=== PATIENT | male | born 1975 | race Caucasian/White ===

== ENCOUNTER 2017-01-13 11:35 | Day surgery (SDC) | payer MEDICAID ==
[2017-01-13 12:12] VITALS: TEMP 98
[2017-01-13] MEDS ORDERED: LACTATED RINGERS 1,000 ML IV ONE (12:12)
[2017-01-13] MEDS ORDERED: LIDOCAINE 1% 20 ML VIAL (10MG/ML) FOR IV START INTRADERMA ONE (12:19)
[2017-01-13] MEDS ORDERED: PROPOFOL 10 MG/ML 20 ML VIAL IV ONE (13:02)
--- NOTE | 2017-01-13 13:20 | P.PCN ---
Date of Procedure: 01/13/17 Procedure(s) Performed: BRIEF HISTORY: Patient is a 41-year-old pleasant white male, scheduled for an elective colonoscopy as a part of evaluation of intermittent rectal bleeding for the last several years duration. PROCEDURE PERFORMED: Colonoscopy with snare polypectomy. PREOPERATIVE DIAGNOSIS: Rectal bleeding. IV sedation per Anesthesia. PROCEDURE: After informed consent was obtained, the patient, was brought into the endoscopy unit. IV sedation was administered by Anesthesia under continuous monitoring. Digital rectal examination was normal. Initially the Olympus CF- 160 flexible video colonoscope was then inserted in the rectum, gradually advanced into the cecum without any difficulty. Careful examination was performed as the scope was gradually being withdrawn. Ileocecal valve and the appendiceal orifice were visualized and appeared normal. Prep was excellent. Mucosa of the cecum, ascending colon, transverse colon, descending colon, sigmoid colon, and rectum appeared normal. There was a 7-8 mm sigmoid colon polyp that was removed by snare polypectomy. Retroflexion was performed in the rectum and small internal hemorrhoids were seen. The patient tolerated the procedure well. IMPRESSION: 7-8 mm sigmoid colon polyp status post polypectomy Small internal hemorrhoids. RECOMMENDATIONS: Findings of this examination were discussed with the patient as well as his family. He was advised to be a high-fiber diet and take fiber supplements on a regular basis. If the biopsy of the colon polyps shows a tubal adenoma he can have a repeat colonoscopy in 5.
[2017-01-13 13:22] VITALS: RESP 16
[2017-01-13 13:39] VITALS: BP 118/83; PULSE 72
== END 2017-01-13 14:00 | disposition home or self-care (01) ==
LOC: ORWHC2ENDO 11:35
PROVIDERS: ATTEND Internal Medicine Gastroenterology
DX: D12.5 Benign neoplasm of sigmoid colon (principal); K64.8 Other hemorrhoids; Z79.899 Other long term (current) drug therapy; Z88.0 Allergy status to penicillin
CPT/HCPCS: 88305; 45385; J2704

== ENCOUNTER → 2017-01-24 | Outpatient (CLI) | payer MEDICAID ==
--- NOTE | 2017-01-24 19:43 | CONS ---
CONSULTATION REASON FOR CONSULTATION: Sleep apnea. 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 The patient is coming in accompanied by his due to concerns about sleep apnea. The patient has been exposed to sawdust and weeds and other tree pollen over the years, and he has chronic nasal congestion and drainage. He has had septal deviation that was corrected surgically by Dr. Goodwin. Currently he is constantly congested in his nose and is essentially a mouth breather. He has a loud snore. He quits breathing at night. He wakes up non-refreshed and tired during the day. He can fall asleep easily. His [place] score is 12. He has never fallen asleep while driving. No recent weight gain. He goes to bed around 11:30 p.m. and wakes up at 6:45 a.m. in the morning. No sleep paralysis or cataplexy. No hallucinations. He is on Zoloft. PAST MEDICAL HISTORY: 1. Nasal septal deviation, corrected. 2. Allergic rhinitis. SURGICAL HISTORY: Nasal septal deviation correction. ALLERGIES: NOT KNOWN. MEDICATIONS: Zoloft. SOCIAL HISTORY: The patient drinks caffeine excessively throughout the day, alcohol socially. No smoking. FAMILY HISTORY: Negative for sleep apnea. REVIEW OF SYSTEMS: Twelve-point review of system was done. Positive findings are all mentioned above in the history of present illness. PHYSICAL EXAMINATION: BP is 135/81, pulse 92, respirations 16, temperature 98.3, saturation 98% on room air. Neck size 16-1/4. BMI 32.9. Weight is 222. Height is 5 feet 9 inches. GENERAL APPEARANCE: Calm, comfortable. HEENT: Bilateral tonsillar enlargement. Mallampati class 3. No goiter or neck masses. Turbinates are enlarged. Septal deviation is corrected surgically. The septum is in the midline. LUNGS: Clear to auscultation. HEART: Sounds are regular rate and rhythm. Normal S1, S2. ABDOMEN: Soft, nontender. No organomegaly. EXTREMITIES: No edema. No cyanosis or clubbing. IMPRESSION: 1. Obstructive sleep apnea suspected, currently under investigation. 2. Chronic allergic rhinitis. 3. History of nasal septal deviation, surgically corrected. 4. Mouth breather. PLAN: 1. Proceed with a screening polysomnogram. 2. Encourage use of Flonase nose spray twice a day. 3. Use antihistamines. 4. Use protective masks to avoid exposure to sawdust and other tree products. 5. Will continue to follow and make further recommendations based on his progress. KEYLA / TYLER: [id number] /
== END ==
LOC: SLEEP 16:58
PROVIDERS: ATTEND Internal Medicine Critical Care Medicine
DX: G47.30 Sleep apnea, unspecified (principal); J30.9 Allergic rhinitis, unspecified; Z79.899 Other long term (current) drug therapy
CPT/HCPCS: 99211

== ENCOUNTER → 2017-05-01 | Outpatient (CLI) | payer MEDICAID ==
--- NOTE | 2017-05-01 13:55 | US ---
EXAMINATION TYPE: US scrotum with doppler. DATE OF EXAM: 05/01/2017 COMPARISON: NONE CLINICAL HISTORY: 41-year-old male R10.2 Pelvic and perineal pain. Bilateral pain that comes and goe s for a few weeks. No injury and no previous surgeries. Technique: Multiple sonographic images of the scrotum were obtained. Color Doppler spectral waveform analysis of the testicular arteries and veins. FINDINGS: TESTICLES: Right Testicle: 4.1 x 3.8 x 2.8 cm Left Testicle: 4.2 x 3.4 x 2.5 cm Normal sonographic echotexture of the kidneys without hyperemia. There is satisfactory arterial and v enous flow seen on both sides. EPIDIDYMIS HEAD: Right Epididymis: 1.4 x 1.1 x 0.8 cm Left Epididymis: 1.0 x 1.0 x 0.7 cm Doppler performed to assess for testicular vascularity; good bilateral color flow and waveforms are s een. There is no evidence of testicular torsion. Presence of hydroceles: Moderate right and small left. Presence of varicoceles: yes, bilateral, left greater than right. IMPRESSION: 1. No sonographic evidence for testicular torsion or epididymoorchitis. 2. Moderate right and small left hydroceles. 3. Bilateral varicoceles, left greater than right.
== END | disposition home or self-care (01) ==
LOC: RADUSWWP 10:17
PROVIDERS: ATTEND Family Medicine
DX: N43.3 Hydrocele, unspecified (principal); I86.1 Scrotal varices; R10.2 Pelvic and perineal pain
CPT/HCPCS: 76870; 93975

== ENCOUNTER → 2017-05-02 | Outpatient (CLI) | payer MEDICAID ==
--- NOTE | 2017-05-02 17:27 | PN ---
PROGRESS NOTE This patient is 41-year-old, and he is coming in to discuss the results of the sleep study. The patient has undergone a screening polysomnogram and he was found to have moderate to severe DAVID with an AHI of 17. His sleep however was significantly fragmented and he had frequent nocturnal arousals. At the same time he had significant abnormalities in sleep architecture where the patient had over representation of stage I and stage 2 sleep with diminished delta and REM sleep. He is still tired, fatigued and sleepy and he is interested in treatment. I am going to offer CPAP therapy on this patient. We discussed various other options available for treatment of obstructive sleep apnea. He seems to be interested in in DAVID treatment and he has opted for CPAP treatment. He is tired and fatigued and he is quite symptomatic and does not fall asleep while driving his car. BP is 131/78, pulse is 80, respirations 16, height is 5 feet 9 inches, weight is 224, BMI is 33.0. General appearance: Calm and comfortable. Head is atraumatic, normocephalic. Neck is supple. There is no JVD. No goiter. No neck masses. Lungs diminished breath sounds. Otherwise clear. Heart sounds regular rate and rhythm. Normal S1, S2. No S3, S4. No murmurs. Abdomen is soft, nontender. No organomegaly. Extremities was no edema, cyanosis or clubbing. NEUROLOGIC: Alert and oriented x3. There is no focal neurological deficits. Psychiatrically: He has got appropriate mood and affect. IMPRESSION: 1. Symptomatic obstructive sleep apnea AHI of 17. 2. Sleep fragmentation secondary to obstructive sleep apnea. 3. Abnormality of sleep architecture with over representation of stage I and stage 2 sleep. 4. Obesity. PLAN: 1. Encourage weight loss. 2. Proceed with CPAP titration. MMODL / IJN: [id number] /
== END | disposition home or self-care (01) ==
LOC: SLEEP 15:19
PROVIDERS: ATTEND Internal Medicine Critical Care Medicine
DX: G47.33 Obstructive sleep apnea (adult) (pediatric) (principal)

== ENCOUNTER → 2017-06-07 | Outpatient (CLI) | payer MEDICAID ==
[2017-06-07 18:15] LABS: Basophils % (A) 0 %; Eosinophils # (A) 0.3 k/uL (0-0.7); Eosinophils % (A) 5 %; HCT 45.8 % (39.0-53.0); HGB 15.1 gm/dL (13.0-17.5); Lymphocytes # (A) 1.5 k/uL (1.0-4.8); Lymphocytes % (A) 20 %; MCHC 32.9 g/dL (31.0-37.0); MCV 87.9 fL (80.0-100.0); Monocytes # (A) 0.5 k/uL (0-1.0); Monocytes % (A) 6 %; Neutrophils # (A) 5.1 k/uL (1.3-7.7); Neutrophils % (A) 67 %; Platelet Count 214 k/uL (150-450); RBC 5.21 m/uL (4.30-5.90); RDW 12.6 % (11.5-15.5); WBC 7.5 k/uL (3.8-10.6)
[2017-06-07 18:32] LABS: ALT 67 U/L (21-72); AST 33 U/L (17-59); Albumin 4.5 g/dL (3.5-5.0); Alkaline Phosphatase 70 U/L (38-126); Anion Gap 12 mmol/L; Blood Urea Nitrogen 11 mg/dL (9-20); Calcium 9.4 mg/dL (8.4-10.2); Carbon Dioxide 29 mmol/L (22-30); Chloride 102 mmol/L (98-107); Cholesterol 178 mg/dL (<200); Glucose 88 mg/dL (74-99); HDL Cholesterol 35 mg/dL (40-60); LDL Cholesterol,Calculated 110 mg/dL (0-99); Potassium 4.2 mmol/L (3.5-5.1); Sodium 143 mmol/L (137-145); Total Bilirubin 0.6 mg/dL (0.2-1.3); Total Protein 7.1 g/dL (6.3-8.2); Triglycerides 167 mg/dL (<150)
[2017-06-08 01:04] LABS: Iron Saturation 15.53 (15.00-50.00)
== END | disposition home or self-care (01) ==
LOC: MMGSC 12:01
PROVIDERS: ATTEND Family Medicine
DX: Z00.00 Encounter for general adult medical examination without abnormal findings (principal); G47.33 Obstructive sleep apnea (adult) (pediatric); R10.30 Lower abdominal pain, unspecified
CPT/HCPCS: 36415; 80053; 80061; 82728; 83540; 83550; 84443; 85025

== ENCOUNTER → 2017-07-13 | Day surgery (SDC) | payer MEDICAID ==
[2017-07-11 11:54] VITALS: BMI 32.5
[~2017-07-13] MED LIST: DEXAMETHASONE SOD PHOS (MDV) 100 MG/10 ML VIAL ONE; DEXAMETHASONE SOD PHOSPHATE 10 MG/ML 1 ML VIAL IV ONE; DEXAMETHASONE SOD PHOSPHATE 4 MG/ML 1 ML VIAL IV ONE; FAMOTIDINE 20 MG/2 ML VIAL IV ONE; HYDROcodone/APAP 5-325MG 1 EACH TAB PO ONE; HYDROmorphone 0.5 MG/0.5 ML SYRINGE IVP PRN; LIDOCAINE 1% 20 ML VIAL (10MG/ML) FOR IV START INTRADERMA PRN; LIDOCAINE 1% INJ 10MG/ML (20 ML MDV) ONE; LIDOCAINE 1%-EPI 1:100,000 20 ML VIAL SQ ONE; MELOXICAM 7.5 MG TAB PO ONE; MIDAZOLAM 2 MG/2 ML VIAL IV PRN; MIDAZOLAM 2 MG/2 ML VIAL ONE; MORPHINE SULFATE 2 MG/ML SYRINGE IV PRN; ONDANSETRON 4 MG/2 ML VIAL IVP ONE; OXYMETAZOLINE 0.05% NASL SPRAY 1 SPRAY BOTTLE NASAL ONE; PROPOFOL 10 MG/ML 20 ML VIAL IV ONE; Pre Op ABX Message 1 EACH MISC MISCELLANE ONE; SCOPOLAMINE 1.5MG/72HR PATCH TRANSDERM ONE; SUCCINYLCHOLINE CHLORIDE 100 MG/5 ML SYR IV ONE; fentaNYL (PF) 50 MCG/ML 2 ML AMP IV PRN; fentaNYL (PF) 50 MCG/ML 2 ML AMP ONE; hydrALAZINE HCL 20 MG/ML 1 ML VIAL IV ONE
[2017-07-13 10:33] VITALS: RESP 16
[2017-07-13] MEDS: LACTATED RINGERS 1,000 ML IV SCH ×2 (10:44→14:46)
--- NOTE | 2017-07-13 12:51 | P.OP ---
Date of Procedure: 07/13/17 Preoperative Diagnosis: Deviated nasal septum to the right with right vomerian thickening bilateral inferior nasal turbinate hypertrophy with obstruction Postoperative Diagnosis: Same Procedure(s) Performed: Septoplasty Bilateral outfracture compression and submucosal resection of the inferior turbinates Anesthesia: JOHNA Surgeon: Jamal Goodwin Estimated Blood Loss (ml): 5 Pathology: other (sinonasal) Condition: stable Disposition: PACU Indications for Procedure: This patient presents to the office with persistent and relative nasal obstruction with recurring epistaxis. He was found have a right-sided vomerian thickening with an ulcerative area over that area along with infrequent turbinate hypertrophy and obstruction. Surgical correction was recommended. All risks, benefits, and alternative therapies were discussed. Consent was obtained and all questions were answered. The patient has a CPAP machine which is also adding to his problems. Operative Findings: Right septal deviation with a vomerian thickening and large obstructive inferior turbinates bilaterally. Description of Procedure: This patient was taken to the operative room and placed in the supine position. A general inhalation anesthetic was administered to the patient by the department of anesthesia with a functioning IV line in place. The patient was monitored throughout the entire case by the department of anesthesia. The eyes were taped shut for protection. The patient was placed in a slight reverse Trendelenburg position. The patient had previously utilize Afrin nasal spray preoperatively. The nose was evaluated and the septum lateral nasal wall and inferior turbinates were injected with lidocaine 1% with epinephrine 1 100, 000 bilaterally. Approximately 10 minutes were allowed wait for full vasoconstrictive effects to take place. At this point a caudal incision was made over the caudal portion of the left septum down to the mucoperichondrium. A mucoperichondrial flap was elevated on the left side and dissection was carried with use of tunnels posteriorly. We then made a crossover incision through the cartilage to the contralateral side and for the mucoperichondrial flap development was performed to the extent of visualization on the contralateral side. After the cartilage was freed with use of several crosshatching incisions and removal of some redundant strips of septal cartilage, the septum was straightened and placed back in the midline. A large right ovarian thickening was removed under direct visualization. The septum was sutured fixated to the ovarian groove. Excellent straightening occurred and the septum was visibly straight. Incision was closed with a 40 rapid Vicryl. We utilized a running nonlocking fashion for closure of the incision. A quilting stitch was used to reapproximate the septal flaps with use of a 40 rapid Vicryl. Intranasal splints were inserted and fixated at the end of the case. We utilized Iyer nasal splints. There will be removed and the patient returns to the office. Attention was then paid to the inferior turbinates. The bilateral inferior turbinates were hypertrophic and obstructive. We entered the anterior portion of the inferior turbinates with use of a microdebrider. We remove bone and submucosal elements with use of a microdebrider bilaterally. The inferior turbinates underwent a submucosal resection with removal of submucosal tissue and bone. We obtained a much better and normal in size for breathing. The inferior turbinates were then outfractured and compressed with a BuzzSpicees nasal elevator. Excellent airway was obtained and was symmetric bilaterally. No bleeding was encountered.
[2017-07-13 14:53] VITALS: TEMP 97.7
[2017-07-13 15:22] VITALS: BP 162/81; PULSE 79
== END ==
LOC: OR 10:16
PROVIDERS: ATTEND Otolaryngology
DX: J34.2 Deviated nasal septum (principal); J34.0 Abscess, furuncle and carbuncle of nose; J34.3 Hypertrophy of nasal turbinates; G47.33 Obstructive sleep apnea (adult) (pediatric); Z99.89 Dependence on other enabling machines and devices; F32.9 Major depressive disorder, single episode, unspecified; Z79.2 Long term (current) use of antibiotics; Z79.51 Long term (current) use of inhaled steroids; Z79.899 Other long term (current) drug therapy; Z88.0 Allergy status to penicillin
CPT/HCPCS: 88300; 30520; 30140; J2250; J0360; J2405; J2001; J3010; J1100; J0330; J2704

== ENCOUNTER → 2017-07-25 | Outpatient (CLI) | payer MEDICAID ==
--- NOTE | 2017-07-25 19:16 | PN ---
PROGRESS NOTE This is a 41-year-old male patient who is coming in for a compliancy check regarding his obstructive sleep apnea treatment. The patient was found to have moderately severe DAVID with an AHI of 17, worse in the supine body position. The patient has been involved in the [employer] and [email or web address]. The patient underwent recent sinus surgery by Dr. Goodwin and he was unable to use the CPAP for a total of 2 weeks. On today's compliance data, his 30-day compliance data has been suboptimal, as the patient has skipped using his CPAP for quite some time due to his sinus surgery. Based on the average CPAP use, he has been achieving around 5.3 hours of CPAP use per night with a leak factor of 8, and AHI while on treatment is down to 3.4. He is benefitting from treatment while wearing his CPAP and he is waking up alert and refreshed during the day. He is on a CPAP pressure of 8 cm of water, now with a C-flex of 3. He is using a large Simplus full-face mask. He is looking for alternatives, knowing that he is having some leaks around the mask, and the mask at times is causing some hissing noise which is affecting his ability to maintain sleep. REVIEW OF SYSTEMS: Twelve-point review of system was done. Positive findings are all mentioned above in the history of present illness. He is waking up much more alert and awake during the day. Snoring has subsided. Tiredness is improved. No sleepiness. No dreams. No sleep paralysis. No hallucinations. No cataplexy. No nocturnal heartburn, chest pain or shortness of breath. No swelling in the lower extremities. No other complaints otherwise. PHYSICAL EXAMINATION: BP is 117/73, pulse 88, respirations 16, temperature 97.8. GENERAL APPEARANCE: He is calm and comfortable. No acute distress. Head is atraumatic, normocephalic. NECK: Supple. There is no JVD. No goiter or neck masses. LUNGS: Diminished breath sounds; otherwise clear. Heart sounds are regular rate and rhythm. Normal S1, S2. No S3, S4. No murmurs. ABDOMEN: Soft, nontender. No organomegaly. EXTREMITIES: No edema. No cyanosis or clubbing. NEUROLOGIC: Alert and oriented x3. There is no focal neurological deficit. PSYCHIATRIC: The patient has no anxiety or depression. IMPRESSION: 1. Symptomatic obstructive sleep apnea, moderate to severe, with an AHI of 17, worse in the supine body position. 2. Chronic sinus disease, post sinus surgery. 3. Chronic allergic rhinitis. 4. History of deviated nasal septum, corrected surgically. PLAN: 1. Will switch this patient to an Airtouch full-face mask, large size, and if he is more comfortable with this mask interface, he will be switched from Simplus to Airtouch or AirFit F20. He will contact me back with his overall clinical response. 2. Improve compliance to the CPAP machine. I think after the sinus surgery he will be able to utilize more often. 3. Patient is benefitting clinically and he is encouraged to continue using the CPAP. 4. See me back in a year's time, earlier if needed. Overall his treatment has been successful. Further compliancy needs to be observed as the patient recovers from his sinus surgery. KEYLA / MERCEDESN: [id number] /
== END | disposition home or self-care (01) ==
LOC: SLEEP 16:11
PROVIDERS: ATTEND Internal Medicine Critical Care Medicine
DX: G47.33 Obstructive sleep apnea (adult) (pediatric) (principal); J32.9 Chronic sinusitis, unspecified; J30.9 Allergic rhinitis, unspecified; Z98.890 Other specified postprocedural states; Z99.89 Dependence on other enabling machines and devices

== ENCOUNTER 2017-08-07 21:55 | Observation (INO) | payer MEDICAID ==
[2017-08-07] MEDS ORDERED: SODIUM CHLORIDE 0.9% 1,000 ML IV STA ×2 (22:36)
--- NOTE | 2017-08-07 23:26 | XR ---
EXAMINATION TYPE: XR chest 2V DATE OF EXAM: 08/07/2017 COMPARISON: NONE HISTORY: Chest pain TECHNIQUE: Frontal and lateral views of the chest are obtained. FINDINGS: Heart and mediastinum are normal. Lungs are clear. Diaphragm is normal. Bony thorax is int act. IMPRESSION: Normal chest
[2017-08-07 23:35] LABS: Basophils % (A) 0 %; Eosinophils # (A) 0.1 k/uL (0-0.7); Eosinophils % (A) 1 %; HCT 40.8 % (39.0-53.0); HGB 14.2 gm/dL (13.0-17.5); Lymphocytes # (A) 0.8 k/uL (1.0-4.8); Lymphocytes % (A) 19 %; MCH 28.5 pg (25.0-35.0); MCHC 34.9 g/dL (31.0-37.0); Mean Platelet Volume 7.2; Monocytes # (A) 0.5 k/uL (0-1.0); Monocytes % (A) 12 %; Neutrophils # (A) 3.1 k/uL (1.3-7.7); Neutrophils % (A) 68 %; Platelet Count 157 k/uL (150-450); RBC 4.99 m/uL (4.30-5.90); RDW 12.9 % (11.5-15.5); WBC 4.5 k/uL (3.8-10.6)
[2017-08-07 23:42] LABS: MCV 81.8 fL (80.0-100.0)
--- NOTE | 2017-08-07 23:43 | CT ---
EXAMINATION TYPE: CT brain wo con DATE OF EXAM: 08/07/2017 COMPARISON: NONE HISTORY: No prior, Head injury 2 days ago, fell backwards while roller skating, no LOC, feeling lousy since incident CT DLP: 1054.20 mGycm. Automated Exposure Control for Dose Reduction was Utilized. TECHNIQUE: CT scan of the head is performed without contrast. FINDINGS: Ventricles and sulci appear normal. There is no mass effect nor midline shift. There is n o sign of intracranial hemorrhage. The calvarium is intact. CONCLUSION: Normal CT scan of the brain.
[2017-08-07 23:46] LABS: ALT 50 U/L (21-72); AST 30 U/L (17-59); Albumin 3.8 g/dL (3.5-5.0); Alkaline Phosphatase 52 U/L (38-126); Amylase 64 U/L (30-110); Anion Gap 15 mmol/L; Blood Urea Nitrogen 13 mg/dL (9-20); Calcium 8.9 mg/dL (8.4-10.2); Carbon Dioxide 24 mmol/L (22-30); Chloride 101 mmol/L (98-107); Glucose 146 mg/dL (74-99); Lipase 233 U/L (23-300); Magnesium 1.9 mg/dL (1.6-2.3); Potassium 3.4 mmol/L (3.5-5.1); Sodium 140 mmol/L (137-145); Total Bilirubin 0.4 mg/dL (0.2-1.3)
[2017-08-07 23:54] LABS: Appearance,Urine Clear (Clear); Bilirubin,Urine Negative (Negative); Blood,Urine Negative (Negative); Color,Urine Yellow; Glucose,Urine (UA) Negative (Negative); Ketones,Urine Negative (Negative); Leukocyte Esterase,Urine Negative (Negative); Nitrite,Urine Negative (Negative); Protein,Urine Trace (Negative); Specific Gravity,Urine 1.023 (1.001-1.035)
[2017-08-07 23:56] LABS: Partial Thromboplastin Time 21.9 sec (22.0-30.0); Prothrombin Time 9.9 sec (9.0-12.0)
--- NOTE | 2017-08-07 23:59 | ED ---
General Adult HPI - General Chief complaint: Head Injury Stated complaint: concussion symptoms Time Seen by Provider: 08/07/17 22:13 Source: patient, RN notes reviewed, old records reviewed Mode of arrival: ambulatory Limitations: no limitations - History of Present Illness Initial comments: Patient's a 41-year-old male presents emergency Department chief complaint of a head injury that happened 2 days ago. Patient ports he was ice skating and hit the back of his head on the ice. He reports that he was seen at at a hospital in [place]. He did not receive a computed tomography scan. He had a laceration over the back of his head. He reports since then he has been just feeling abnormal. He reports that he's been having cold sweats. He's been having difficulty with his thought process. He reports that he's been having occasional shortness of breath as well. He states that he is felt nauseated and dizzy as well. Patient denies any significant chest pain at this time. - Related Data Home Medications Medication Instructions Recorded Confirmed Sertraline [Zoloft] 100 mg PO DAILY 04/14/15 07/13/17 Previous Rx's Medication Instructions Recorded Clindamycin HCl 300 mg PO Q12HR #20 cap 07/13/17 Hydrocodone/Acetaminophen [[place] 1 - 2 each PO Q6HR PRN #40 tab 07/13/17 5-325] predniSONE 20 mg PO DIRECTED #5 tab 07/13/17 Allergies Allergy/AdvReac Type Severity Reaction Status Date / Time Penicillins Allergy Unknown Verified 08/07/17 22:06 Childhood Review of Systems ROS Statement: Those systems with pertinent positive or pertinent negative responses have been documented in the HPI. ROS Other: All systems not noted in ROS Statement are negative. Past Medical History Past Medical History: No Reported History Additional Past Medical History / Comment(s): SINUS PROBLEMS History of Any Multi-Drug Resistant Organisms: None Reported Past Surgical History: Orthopedic Surgery Additional Past Surgical History / Comment(s): wisdom teeth removed. BILAT [facility] Past Anesthesia/Blood Transfusion Reactions: No Reported Reaction Past Psychological History: Anxiety Smoking Status: Never smoker Past Alcohol Use History: None Reported Past Drug Use History: None Reported - Past Family History Mother Family Medical History: No Reported History General Exam - General Exam Comments Initial Comments: 41-year-old male. Alert. No acute distress. Limitations: no limitations General appearance: alert, in no apparent distress, other Head exam: Present: atraumatic, normocephalic, normal inspection, other ( is a well-appearing laceration over the right side of the posterior scalp. No significant hematoma noted.) Eye exam: Present: normal appearance, PERRL, EOMI. Absent: scleral icterus, conjunctival injection, periorbital swelling ENT exam: Present: normal exam, mucous membranes moist Neck exam: Present: normal inspection. Absent: tenderness, meningismus, lymphadenopathy Respiratory exam: Present: normal lung sounds bilaterally. Absent: respiratory distress, wheezes, rales, rhonchi, stridor Cardiovascular Exam: Present: regular rate, normal rhythm, normal heart sounds. Absent: systolic murmur, diastolic murmur, rubs, gallop, clicks GI/Abdominal exam: Present: soft, normal bowel sounds. Absent: distended, tenderness, guarding, rebound, rigid Course Vital Signs 08/07/17 08/07/17 08/08/17 22:04 23:57 00:00 Temperature 97.5 F L Pulse Rate 80 63 95 Respiratory 18 18 19 Rate Blood Pressure 131/74 125/61 116/67 O2 Sat by Pulse 98 96 100 Oximetry 08/08/17 01:00 Temperature 97.8 F Pulse Rate 60 Respiratory 16 Rate Blood Pressure 120/64 O2 Sat by Pulse 100 Oximetry Medical Decision Making - Medical Decision Making 41-year-old male presents emergency department today chief complaint head injury a few days ago. He reports that since that time he was having some episodes of nausea, and cold sweats. He reports he just feeling generally ill. Patient is complaining EKG and the patient. There was some signs of inferior ischemia and the T-wave abnormality in leads II, III, and F aVF. Patient has no previous EKGs to compare from. He does have a family history of heart disease. I did scan patient's brain, negative for any acute process. Patient labwork was reviewed and the relatively unremarkable. At this time with the nausea and cold sweats and the abnormal EKG like to give the patient for observation. Repeat troponins. Consult cardiology for possible stress test. All questions answered return parameters were discussed. - Lab Data Result diagrams: 08/07/17 22:22 08/07/17 22:22 Lab Results 08/07/17 08/07/17 08/07/17 Range/Units 22:22 22:22 22:22 WBC 4.5 (3.8-10.6) k/uL RBC 4.99 (4.30-5.90) m/uL Hgb 14.2 (13.0-17.5) gm/dL Hct 40.8 (39.0-53.0) % MCV 81.8 D (80.0-100.0) fL MCH 28.5 (25.0-35.0) pg MCHC 34.9 (31.0-37.0) g/dL RDW 12.9 (11.5-15.5) % Plt Count 157 (150-450) k/uL Neutrophils % 68 % Lymphocytes % 19 % Monocytes % 12 % Eosinophils % 1 % Basophils % 0 % Neutrophils # 3.1 (1.3-7.7) k/uL Lymphocytes # 0.8 L (1.0-4.8) k/uL Monocytes # 0.5 (0-1.0) k/uL Eosinophils # 0.1 (0-0.7) k/uL Basophils # 0.0 (0-0.2) k/uL PT (9.0-12.0) sec INR (<1.2) APTT (22.0-30.0) sec Sodium 140 (137-145) mmol/L Potassium 3.4 L (3.5-5.1) mmol/L Chloride 101 (98-107) mmol/L Carbon Dioxide 24 (22-30) mmol/L Anion Gap 15 mmol/L BUN 13 (9-20) mg/dL Creatinine 0.80 (0.66-1.25) mg/dL Est GFR (CKD-EPI)AfAm >90 (>60 ml/min/1.73 sqM) Est GFR (CKD-EPI)NonAf >90 (>60 ml/min/1.73 sqM) Glucose 146 H (74-99) mg/dL Calcium 8.9 (8.4-10.2) mg/dL Magnesium 1.9 (1.6-2.3) mg/dL Total Bilirubin 0.4 (0.2-1.3) mg/dL AST 30 (17-59) U/L ALT 50 (21-72) U/L Alkaline Phosphatase 52 (38-126) U/L Total Creatine Kinase 58 (55-170) U/L CK-MB (CK-2) <0.2 (0.0-2.4) ng/mL CK-MB (CK-2) Rel Index Troponin I <0.012 (0.000-0.034) ng/mL Total Protein 6.0 L (6.3-8.2) g/dL Albumin 3.8 (3.5-5.0) g/dL Amylase 64 (30-110) U/L Lipase 233 (23-300) U/L Urine Color Urine Appearance (Clear) Urine pH (5.0-8.0) Ur Specific [place] (1.001-1.035) Urine Protein (Negative) Urine Glucose (UA) (Negative) Urine Ketones (Negative) Urine Blood (Negative) Urine Nitrite (Negative) Urine Bilirubin (Negative) Urine Urobilinogen (<2.0) mg/dL Ur Leukocyte Esterase (Negative) 08/07/17 08/07/17 Range/Units 22:22 23:36 WBC (3.8-10.6) k/uL RBC (4.30-5.90) m/uL Hgb (13.0-17.5) gm/dL Hct (39.0-53.0) % MCV (80.0-100.0) fL MCH (25.0-35.0) pg MCHC (31.0-37.0) g/dL RDW (11.5-15.5) % Plt Count (150-450) k/uL Neutrophils % % Lymphocytes % % Monocytes % % Eosinophils % % Basophils % % Neutrophils # (1.3-7.7) k/uL Lymphocytes # (1.0-4.8) k/uL Monocytes # (0-1.0) k/uL Eosinophils # (0-0.7) k/uL Basophils # (0-0.2) k/uL PT 9.9 (9.0-12.0) sec INR 1.0 (<1.2) APTT 21.9 L (22.0-30.0) sec Sodium (137-145) mmol/L Potassium (3.5-5.1) mmol/L Chloride (98-107) mmol/L Carbon Dioxide (22-30) mmol/L Anion Gap mmol/L BUN (9-20) mg/dL Creatinine (0.66-1.25) mg/dL Est GFR (CKD-EPI)AfAm (>60 ml/min/1.73 sqM) Est GFR (CKD-EPI)NonAf (>60 ml/min/1.73 sqM) Glucose (74-99) mg/dL Calcium (8.4-10.2) mg/dL Magnesium (1.6-2.3) mg/dL Total Bilirubin (0.2-1.3) mg/dL AST (17-59) U/L ALT (21-72) U/L Alkaline Phosphatase (38-126) U/L Total Creatine Kinase (55-170) U/L CK-MB (CK-2) (0.0-2.4) ng/mL CK-MB (CK-2) Rel Index Troponin I (0.000-0.034) ng/mL Total Protein (6.3-8.2) g/dL Albumin (3.5-5.0) g/dL Amylase (30-110) U/L Lipase (23-300) U/L Urine Color Yellow Urine Appearance Clear (Clear) Urine pH 6.0 (5.0-8.0) Ur Specific [place] 1.023 (1.001-1.035) Urine Protein Trace H (Negative) Urine Glucose (UA) Negative (Negative) Urine Ketones Negative (Negative) Urine Blood Negative (Negative) Urine Nitrite Negative (Negative) Urine Bilirubin Negative (Negative) Urine Urobilinogen 3.0 (<2.0) mg/dL Ur Leukocyte Esterase Negative (Negative) 08/07/17 23:58 EKG performed at 2249 shows normal sinus rhythm. T-wave abnormality. Considering inferior ischemia. Abnormal EKG noted. Ventricular rate of 65 beats. [place] interval is 176 most seconds. QRS ration 90 ms. QT QTc is 390/405 ms. - Radiology Data Radiology results: report reviewed Normal computed tomography scan of the brain. Chest x-rays reviewed and negative for any acute process. Disposition Clinical Impression: Abnormal EKG, Dizziness, Nausea, Head injury Disposition: ADMITTED IP TO THIS [facility] Condition: Stable Is patient prescribed a controlled substance at d/c from ED?: No If prescribed controlled substance>3 days was MAPS reviewed?: No When asked, does pt state using other controlled substances?: No Referrals: Carmencita England MD [Primary Care Provider] - 1-2 days Time of Disposition: 01:30
[2017-08-08 00:05] LABS: Creatine Kinase 58 U/L (55-170)
[2017-08-08 00:18] LABS: Creatine Kinase MB <0.2 ng/mL (0.0-2.4); Troponin I <0.012 ng/mL (0.000-0.034)
[2017-08-08 01:26] VITALS: RESP 16
[2017-08-08] MEDS ORDERED: NITROGLYCERIN SL TABS 0.4 MG TAB SUBLINGUAL PRN (01:30)
[2017-08-08 02:20] VITALS: BMI 33.3
[2017-08-08 04:58] LABS: Creatine Kinase 52 U/L (55-170)
[2017-08-08 05:11] LABS: Creatine Kinase MB <0.2 ng/mL (0.0-2.4); Troponin I <0.012 ng/mL (0.000-0.034)
[2017-08-08] MEDS ORDERED: NALOXONE 0.4 MG/ML 1 ML VIAL IV PRN (07:04)
--- NOTE | 2017-08-08 07:04 | P.HPIM ---
History of Present Illness H&P Date: 08/08/17 Chief Complaint: headache, nausea 41-year-old male with obstructive sleep apnea currently treated. Over the weekend 2 days ago he had the fall hitting the back of his head while ice skating he went to Hospital in [place] and had some stitches placed no imaging was performed. Since then patient was feeling nauseated, generalized malaise, and feels like his thoughts are loss for which she decided come the hospital for further evaluation. He also reports some night sweats. Patient denies any chest pain or history of heart attacks, he reports no history of premature CAD in family. He denies any smoking. Denies any recent traveling. Denies any history of blood clots. Scan of the head was performed in the ED was unremarkable Patient seen on the medical floor and currently denies any chest pain or trouble breathing Review of Systems Constitutional: Patient denies fever, denies chills, reports night sweating, denies significant weight changes Eyes: Patient denies visual changes, denies eye pain ENT: Patient denies ear pain, denies rhinorrhea, denies sore throat Cardiovascular: Patient denies chest pain, denies exertional dyspnea, denies peripheral leg edema, denies orthopnea, denies paroxysmal nocturnal dyspnea Respiratory:Patient denies cough, denies wheezing, denies shortness of breath Gastrointestinal: Patient denies diarrhea, denies constipation, denies nausea , denies vomiting, denies abdominal pain Genitourinary: Patient denies dysuria, denies hematuria, denies changes in urinary habits, denies genital lesions Musculoskeletal: Patient denies muscle pain, denies joint pain Psychiatric: Patient denies reports difficulty with his thoughts and memory since the fall, denies suicidal ideation, denies anxiety Endocrine: Patient denies heat intolerance, denies cold intolerance, denies excessive thirst, denies polyuria Neurological: Patient denies focal neurologic deficits, denies weakness, denies numbness, denies tingling Hem/Lymphatic: Patient denies bleeding tendency, denies bruising, denies swollen lymph glands Allergic/Immun: Patient denies recent allergic reactions Skin: Patient denies rashes, denies pruritis, denies ulcers Past Medical History Past Medical History: No Reported History, Sleep Apnea/CPAP/BIPAP Additional Past Medical History / Comment(s): SINUS PROBLEMS, obstructive sleep apnea History of Any Multi-Drug Resistant Organisms: None Reported Past Surgical History: Orthopedic Surgery Additional Past Surgical History / Comment(s): wisdom teeth removed. BILAT carpel tunnel. Sinus surgery Past Anesthesia/Blood Transfusion Reactions: No Reported Reaction Past Psychological History: Anxiety Smoking Status: Never smoker Past Alcohol Use History: None Reported Past Drug Use History: None Reported - Past Family History Father Family Medical History: Cancer Additional Family Medical History / Comment(s): prostate Ca-surgery Mother Family Medical History: No Reported History Medications and Allergies Home Medications and Allergies Comment(s): Zoloft for anxiety Home Medications Medication Instructions Recorded Confirmed Type Sertraline [Zoloft] 100 mg PO DAILY 04/14/15 08/08/17 History Allergies Allergy/AdvReac Type Severity Reaction Status Date / Time Penicillins Allergy Unknown Verified 08/07/17 22:06 Childhood Physical Exam Vitals: Vital Signs Temp Pulse Pulse Resp BP BP Pulse Ox 08/08/17 04:00 56 L 16 08/08/17 02:30 62 16 08/08/17 01:40 98 F 62 16 123/72 99 08/08/17 01:00 97.8 F 60 16 120/64 100 08/08/17 00:00 95 19 116/67 100 08/07/17 23:57 63 18 125/61 96 08/07/17 22:04 97.5 F L 80 18 131/74 98 Intake and Output 08/07/17 08/07/17 08/08/17 14:59 22:59 06:59 Intake Total 500 Balance 500 Intake: Intake, IV Titration 500 Amount Sodium Chloride 0.9% 1, 500 000 ml @ 100 mls/hr IV . Q10H STA Rx#:[id number] Oral 0 Other: Voiding Method Toilet # Voids 2 Weight 99.79 kg 102.5 kg Constitutional: No acute distress, conversant, pleasant Eyes: Anicteric sclerae, moist conjunctiva, no lid-lag Pupils equal round reactive to light ENMT: NC/AT Oropharynx clear, no erythema, or exudates Neck: Supple, FROM, no masses, or JVD No carotid bruits No thyromegaly Lungs: Clear to auscultation Clear to percussion Normal respiratory effort, no accessory muscle use Cardiovascular: Heart regular in rate and rhythm, No murmurs, gallops, or rubs No peripheral edema Abdominal: Soft Nontender, no guarding, rebound or rigidity Abdomen moving with respiration Normoactive bowel sounds No hepatomegaly, No splenomegaly No palpable mass No abdominal wall hernia noted Skin: abrasion over the tucker of left leg, minimal surrounding erythema no induration Normal temperature, tone, texture, turgor No induration No subcutaneous nodules No rash, No ulcers Extremities: No digital cyanosis No clubbing Pedal pulses intact and symmetrical Radial pulses intact and symmetrical No calf tenderness Psychiatric: Alert and oriented to person, place and time Appropriate affect fair judgment Neuro Muscles Strength 5/5 in all 4 extremities Sensation to light touch grossly present throughout Cranial nerves II-XII grossly intact No focal sensory deficits Lymphatics: no palpable cervical or supraclavicular , or inguinal lymph nodes Results CBC & Chem 7: 08/07/17 22:22 08/07/17 22:22 Labs: Abnormal Lab Results - Last 24 Hours (Table) 08/07/17 08/07/17 08/07/17 Range/Units 22:22 22:22 22:22 Lymphocytes # 0.8 L (1.0-4.8) k/uL APTT 21.9 L (22.0-30.0) sec Potassium 3.4 L (3.5-5.1) mmol/L Glucose 146 H (74-99) mg/dL Total Creatine Kinase (55-170) U/L Total Protein 6.0 L (6.3-8.2) g/dL Urine Protein (Negative) 08/07/17 08/08/17 Range/Units 23:36 04:16 Lymphocytes # (1.0-4.8) k/uL APTT (22.0-30.0) sec Potassium (3.5-5.1) mmol/L Glucose (74-99) mg/dL Total Creatine Kinase 52 L (55-170) U/L Total Protein (6.3-8.2) g/dL Urine Protein Trace H (Negative) Thrombosis Risk Factor Assmnt - Choose All That Apply Each Factor Represents 1 point: Age 41-60 years Thrombosis Risk Factor Assessment Total Risk Factor Score: 1 Thrombosis Risk Factor Assessment Level: Low Risk Assessment and Plan Assessment: 41-year-old male with history of obstructive sleep apnea and OCD. Recently fell on the back of his head requiring couple stitches. Computed tomography scan of the head is negative. EKG showed some abnormal T waves nonspecific for which she was admitted under observation for cardiology evaluation Plan: #Abnormal EKG T wave inversion in inferior leads Denies chest pain or trouble breathing at this time Cycling cardiac enzymes follow-up troponins Cardiology evaluation for further recommendations Continue with aspirin Nitro when necessary chest pain #Hypokalemia Replace by mouth #Obstructive sleep apnea Continue with CPAP #OCD Continue Zoloft DVT prophylaxis Heparin subcu. CODE STATUS:full code Discussed with: Patient, ER, RN Anticipated discharge: <[address]: A total of 50 minutes was spent on the care of this complex patient more than 50 % of the time was spent in counseling and care coordination.
[2017-08-08] MEDS ORDERED: POTASSIUM CHLORIDE ER 20 MEQ TAB.ER PO STA (07:06)
[2017-08-08 07:22] VITALS: BP 112/65; PULSE 65; TEMP 98.1
[2017-08-08] MEDS ORDERED: HEPARIN SODIUM,PORCINE 5,000 UNIT/ML 1 ML VIAL SQ SCH (08:00)
[2017-08-08] MEDS ORDERED: ACETAMINOPHEN TAB 325 MG TAB PO PRN (09:00)
[2017-08-08] MEDS ORDERED: traMADol 50 MG TAB PO PRN (09:00)
[2017-08-08] MEDS ORDERED: SERTRALINE 100 MG TAB PO SCH (09:00)
--- NOTE | 2017-08-08 10:36 | ECHOF ---
Referral Reason: MEASUREMENTS -------- HEIGHT: 170.2 cm WEIGHT: 90.7 kg BP: RVIDd: 3.2 cm (< 3.3) IVSd: 1.6 cm (0.6 - 1.1) LVIDd: 4.1 cm (3.9 - 5.3) LVPWd: 1.6 cm (0.6 - 1.1) IVSs: 2.3 cm LVIDs: 2.3 cm LVPWs: 2.0 cm Ao Diam: 3.4 cm (2.0 - 3.7) AV Cusp: 2.4 cm (1.5 - 2.6) LA Diam: 3.2 cm (2.7 - 3.8) MV EXCURSION: 22.560 mm (> 18.000) MV EF SLOPE: 274 mm/s (70 - 150) EPSS: 0.2 cm MV E Vj: 0.91 m/s MV DecT: 146 ms MV A Vj: 0.50 m/s MV E/A Ratio: 1.83 RAP: 5.00 mmHg RVSP: 36.57 mmHg FINDINGS -------- Sinus rhythm. This was a technically good study. The left ventricular size is normal. There is moderate concentric left ventricular hypertrophy. O verall left ventricular systolic function is normal with, an EF between 55 - 60 %. The right ventricle is normal in size and function. The left atrium is normal in size. The right atrium is normal in size. The aortic valve is trileaflet and appears structurally normal. The mitral valve leaflets are mildly thickened. There is trace mitral regurgitation. Trace tricuspid regurgitation present. The right ventricular systolic pressure, as measured by Dopp ler, is 36.57mmHg. Pulmonic valve appears structurally normal. The aortic root size is normal. Normal inferior vena cava with normal inspiratory collapse consistent with estimated right atrial pre ssure of 5 mmHg. The pericardium is normal. CONCLUSIONS -------- 1. Sinus rhythm. 2. This was a technically good study. 3. The left ventricular size is normal. 4. There is moderate concentric left ventricular hypertrophy. 5. Overall left ventricular systolic function is normal with, an EF between 55 - 60 %. 6. The right ventricle is normal in size and function. 7. The left atrium is normal in size. 8. The right atrium is normal in size. 9. The aortic valve is trileaflet and appears structurally normal. 10. The mitral valve leaflets are mildly thickened. 11. There is trace mitral regurgitation. 12. Trace tricuspid regurgitation present. 13. The right ventricular systolic pressure, as measured by Doppler, is 36.57mmHg. 14. Pulmonic valve appears structurally normal. 15. The aortic root size is normal. 16. Normal inferior vena cava with normal inspiratory collapse consistent with estimated right atrial pressure of 5 mmHg. 17. The pericardium is normal. CHIEF CLERK: Melissa Shrestha RDCS
--- NOTE | 2017-08-08 10:59 | P.CRDCN ---
History of Present Illness Consult date: 08/08/17 History of present illness: Mr. Valentine is a pleasant 41-year-old female past medical history significant for obstructive sleep apnea and anxiety. He denies history of coronary artery disease and has never seen a pharmacists for any reason. We have been asked to see him in consultation for an abnormal EKG. He presented to the hospital with complaints related to a fall on Monday. He was ice skating on Monday night and he slipped and fell backwards hitting his head on the ice. He suffered a laceration to the back of his head. He sought medical care at that time and was released after having a negative CT of his head. Since then he has described feeling that his thoughts are slow and he is dizzy. An EKG was obtained and revealed non-specific ST changes with no clear ST elevation indicative of ischemia. CT of his brain was again negative. EKG reveals sinus mechanism with non-specific ST abnormalities with T-wave inversion in inferior leads. There is no old for comparison. Chest xray negative for an acute cardiopulmonary process. CT brain negative. Laboratory data reviewed, hemoglobin 14.2, platelets 157, sodium 140, potassium 3.4, creatinine 0.8, magnesium 1.9, cardiac enzymes negative 2 Review of Systems At the time of my exam: CONSTITUTIONAL: Denies fever. Denies chills. EYES: Denies blurred vision. Denies vision changes. Denies eye pain. EARS, NOSE, MOUTH & THROAT: Denies headache. Denies sore throat. Denies ear pain. CARDIOVASCULAR: Denies chest pain. Denies shortness of breath. Denies orthopnea. Denies PND. Denies palpitations. RESPIRATORY: Denies cough. GASTROINTESTINAL: Denies abdominal pain. Denies diarrhea. Denies constipation. Denies nausea. Denies vomiting. MUSCULOSKELETAL: Denies myalgias. INTEGUMENTARY: Denies pruitis. Denies rash. NEUROLOGIC: Denies numbness. Denies tingling. Denies weakness. PSYCHIATRIC: Denies anxiety. Denies depression. ENDOCRINE: Denies fatigue. Denies weight change. Denies polydipsia. Denies polyurina. GENITOURINARY: Denies burning, hematuria or urgency with micturation. HEMATOLOGIC: Denies history of anemia. Denies bleeding. Past Medical History Past Medical History: No Reported History, Sleep Apnea/CPAP/BIPAP Additional Past Medical History / Comment(s): SINUS PROBLEMS, obstructive sleep apnea History of Any Multi-Drug Resistant Organisms: None Reported Past Surgical History: Orthopedic Surgery Additional Past Surgical History / Comment(s): wisdom teeth removed. BILAT carpel tunnel. Sinus surgery Past Anesthesia/Blood Transfusion Reactions: No Reported Reaction Past Psychological History: Anxiety Smoking Status: Never smoker Past Alcohol Use History: None Reported Past Drug Use History: None Reported - Past Family History Father Family Medical History: Cancer Additional Family Medical History / Comment(s): prostate Ca-surgery Mother Family Medical History: No Reported History Medications and Allergies Home Medications Medication Instructions Recorded Confirmed Type Sertraline [Zoloft] 100 mg PO DAILY 04/14/15 08/08/17 History Allergies Allergy/AdvReac Type Severity Reaction Status Date / Time Penicillins Allergy Unknown Verified 08/08/17 08:17 Childhood Physical Exam Vitals: Vital Signs Temp Pulse Pulse Resp BP BP Pulse Ox 08/08/17 07:21 98.1 F 65 16 112/65 97 08/08/17 04:00 56 L 16 08/08/17 02:30 62 16 08/08/17 01:40 98 F 62 16 123/72 99 08/08/17 01:00 97.8 F 60 16 120/64 100 08/08/17 00:00 95 19 116/67 100 08/07/17 23:57 63 18 125/61 96 08/07/17 22:04 97.5 F L 80 18 131/74 98 Intake and Output 08/07/17 08/08/17 08/08/17 22:59 06:59 14:59 Intake Total 500 Balance 500 Intake: Intake, IV Titration 500 Amount Sodium Chloride 0.9% 1, 500 000 ml @ 100 mls/hr IV . Q10H STA Rx#:[id number] Oral 0 Other: Voiding Method Toilet # Voids 2 Weight 99.79 kg 102.5 kg Blood pressure 112/65 heart rate 65 afebrile maintaining oxygen saturation on room air GENERAL: This is a 41-year-old occasion male in no apparent distress at the time of my examination. HEENT: Head is atraumatic, normocephalic. Pupils are equal, round. Sclerae anicteric. Conjunctivae are clear. Mucous membranes of the mouth are moist. Neck is supple. There is no jugular venous distention. No carotid bruit is heard. Small healed laceration on the right posterior head. LUNGS: Clear to auscultation no wheezes, rales or rhonchi. No chest wall tenderness is noted on palpation or with deep breathing. HEART: Regular rate and rhythm without murmurs, rubs or gallops. S1 and S2 heard. ABDOMEN: Soft, nontender. Bowel sounds are heard. No organomegaly noted. EXTREMITIES: No evidence of peripheral edema and no calf tenderness noted. VASCULAR: Radial and dorsalis pedis pulses palpated, no evidence of clubbing. NEUROLOGIC: Patient is awake, alert and oriented x3. Results 08/07/17 22:22 08/07/17 22:22 Cardiac Enzymes 08/07/17 08/07/17 08/08/17 Range/Units 22:22 22:22 04:16 AST 30 (17-59) U/L CK-MB (CK-2) <0.2 <0.2 (0.0-2.4) ng/mL Troponin I <0.012 <0.012 (0.000-0.034) ng/mL Coagulation 08/07/17 Range/Units 22:22 PT 9.9 (9.0-12.0) sec APTT 21.9 L (22.0-30.0) sec CBC 08/07/17 Range/Units 22:22 WBC 4.5 (3.8-10.6) k/uL RBC 4.99 (4.30-5.90) m/uL Hgb 14.2 (13.0-17.5) gm/dL Hct 40.8 (39.0-53.0) % Plt Count 157 (150-450) k/uL Comprehensive Metabolic Panel 08/07/17 Range/Units 22:22 Sodium 140 (137-145) mmol/L Potassium 3.4 L (3.5-5.1) mmol/L Chloride 101 (98-107) mmol/L Carbon Dioxide 24 (22-30) mmol/L BUN 13 (9-20) mg/dL Creatinine 0.80 (0.66-1.25) mg/dL Glucose 146 H (74-99) mg/dL Calcium 8.9 (8.4-10.2) mg/dL AST 30 (17-59) U/L ALT 50 (21-72) U/L Alkaline Phosphatase 52 (38-126) U/L Total Protein 6.0 L (6.3-8.2) g/dL Albumin 3.8 (3.5-5.0) g/dL Current Medications Generic Name Dose Route Start Last Admin Trade Name Freq PRN Reason Stop Dose Admin Aspirin 325 mg 08/09/17 09:00 Aspirin PO DAILY RYAN Heparin Sodium (Porcine) 5,000 unit 08/08/17 08:00 Heparin SQ Q8HR RYAN Sodium Chloride 1,000 mls @ 100 mls/hr 08/07/17 22:36 08/07/17 23:36 Saline 0.9% IV 08/08/17 08:35 100 mls/hr .Q10H STA Administration Naloxone HCl 0.2 mg 08/08/17 07:04 Narcan IV Q2M PRN Opioid Reversal Nitroglycerin 0.4 mg 08/08/17 01:30 Nitrostat SUBLINGUAL Q5M PRN Chest Pain Sertraline HCl 100 mg 08/08/17 09:00 Zoloft PO DAILY RYAN Intake and Output 08/07/17 08/08/17 08/08/17 22:59 06:59 14:59 Intake Total 500 Balance 500 Intake: Intake, IV Titration 500 Amount Sodium Chloride 0.9% 1, 500 000 ml @ 100 mls/hr IV . Q10H STA Rx#:[id number] Oral 0 Other: Voiding Method Toilet # Voids 2 Weight 99.79 kg 102.5 kg 08/07/17 22:22 08/07/17 22:22 Assessment and Plan Assessment: ASSESSMENT 1. EKG changes, nonspecific ST and T-wave abnormality. No acute ischemia evident. Cardiac enzymes are negative 2. 2. Dizziness s/p fall on ice while playing hockey 3 days ago. 3. Obstructive sleep apnea 4. History of anxiety PLAN Echocardiogram obtained and reviewed, preserved LV function with no valvular heart disease. Dizziness related to recent fall with negative CT of the brain. Ongoing medical management of dizziness with no clear cut evidence of cardiac etiology. Stable from a cardiac perspective. Follow-up with Dr. Pichardo in 2-3 weeks for outpatient stress testing. Thank you kindly for this consultation. The above impression and plan of care have been discussed and directed by the signing physician. Meera Burleson, nurse practitioner, acting as scribe for signing physician.
--- NOTE | 2017-08-08 11:14 | P.DS ---
Providers Date of admission: 08/08/17 01:24 Expected date of discharge: 08/08/17 Attending physician: Chet Lackey MD Consults: 08/08/17 01:31 Consult Physician Urgent Consulting Provider: Asher Morgan Consult Reason/Comments: Abnormal EKG, UA Do you want consulting provider notified?: Yes, Notify in am Primary care physician: Carmencita England - Discharge Diagnosis(es) (1) Concussion Current Visit: Yes Status: Acute (2) DAVID (obstructive sleep apnea) Current Visit: Yes Status: Acute (3) Abnormal EKG Current Visit: Yes Status: Acute (4) Dizziness Current Visit: Yes Status: Acute Hospital Course: Patient is a 41-year-old male with a past medical history of obstructive sleep apnea, obsessive-compulsive disorder, and obesity who presented to the hospital with complaints of dizziness and a headache. He had fell 3 days prior while ice skating the back of his head. He did have stitches placed. In the ER he underwent an extensive evaluation. On arrival his vital signs within normal limits. Laboratory analysis was unremarkable. EKG did show some T-wave inversion. His potassium was slightly low at 3.4. He was admitted for cardiac observation. His troponin remained negative. He was seen by cardiology who felt his dizziness was noncardiac in nature but recommended a outpatient stress test. He continued to have a headache during hospitalization however he did undergo a CT brain in the ER which was negative as well as a chest x-ray which was negative. It was felt that he likely has mild concussion related to his symptoms. We did talk about returning to work. 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 We did discuss that he can resume normal activities but needs to assure that he does not have a second head injury until all symptoms have resolved. I have also asked him to follow up with Dr. Yen Lucio in 1 week to ensure symptoms are getting better. Information on concussion symptoms was also included in his discharge packet. He will also follow with Dr. Pichardo for outpatient stress test. Patient seen and examined at bedside. ROSA improved with tylenol, dizziness getting better, still with fatigue. No visual changes, seizures, or changes in mood or behaviors. Vital signs reviewed and stable. General: non toxic, no distress, appears at stated age Derm: warm, dry Head: atraumatic, normocephalic, symmetric, small laceration on back of scalp no swelling or ecchymosis Eyes: EOMI, no lid lag, anicteric sclera Mouth: no lip lesion, mucus membranes moist Cardiovascular: S1S2 reg, no murmur, positive posterior tibial pulse bilateral, Lungs: CTA bilateral, no rhonchi, no rales , no accessory muscle use Abdominal: soft, nontender to palpation, no guarding, no appreciable organomegaly Ext: no gross muscle atrophy, no edema, no contractures Neuro: CN II-XI grossly intact, no focal neuro deficits Psych: Alert, oriented, appropriate affect A total of 30 minutes of time were spent preparing this complex discharge summary . Pertinent Studies: CT had-no acute process Chest x-ray-no acute process Patient Condition at Discharge: Stable Plan - Discharge Summary Discharge Rx Participant: No New Discharge Prescriptions: Continue Sertraline [Zoloft] 100 mg PO DAILY Discharge Medication List Sertraline [Zoloft] 100 mg PO DAILY 04/14/15 [History] Follow up Appointment(s)/Referral(s): Carmencita England MD [Primary Care Provider] - 1-2 days Niko Pichardo MD [STAFF PHYSICIAN] - 4 Weeks Patient Instructions/Handouts: Concussion (DC)
[2017-08-09] MEDS ORDERED: ASPIRIN 325 MG TAB PO SCH (09:00)
== END 2017-08-08 11:27 | disposition home or self-care (01) ==
LOC: EC 21:55 → 3OBS 08-08 01:24
PROVIDERS: ADMIT Internal Medicine; ATTEND Internal Medicine
DX: S06.0X9A Concussion with loss of consciousness of unspecified duration, initial encounter (principal); R61 Generalized hyperhidrosis; R06.02 Shortness of breath; E87.6 Hypokalemia; R94.31 Abnormal electrocardiogram [ECG] [EKG]; F42.9 Obsessive-compulsive disorder, unspecified; F41.9 Anxiety disorder, unspecified; G47.33 Obstructive sleep apnea (adult) (pediatric); Z99.89 Dependence on other enabling machines and devices; E66.9 Obesity, unspecified; Z68.33 Body mass index [BMI] 33.0-33.9, adult; S01.01XA Laceration without foreign body of scalp, initial encounter; Y93.21 Activity, ice skating; W01.0XXA Fall on same level from slipping, tripping and stumbling without subsequent striking against object, initial encounter; Z79.899 Other long term (current) drug therapy; Z88.0 Allergy status to penicillin; Z82.49 Family history of ischemic heart disease and other diseases of the circulatory system; Z80.42 Family history of malignant neoplasm of prostate
CPT/HCPCS: 99285; 96360 ×2; 96361 ×4; 96372; 36415; 93005; 93306; 80053; 82150; 82550 ×2; 82553 ×2; 83690; 83735; 84484 ×2; 85025; 85610; 85730; 81003; 71046; 70450; G0378; J1644

== ENCOUNTER 2018-10-01 08:28 | Observation (INO) | payer MEDICAID ==
[2018-10-01] MEDS ORDERED: ONDANSETRON 4 MG/2 ML VIAL IVP STA (08:55)
[2018-10-01] MEDS ORDERED: PANTOPRAZOLE 40 MG/10 ML VIAL IVP STA (08:55)
[2018-10-01] MEDS ORDERED: KETOROLAC 30 MG/ML 1 ML VIAL IVP STA (08:55)
[2018-10-01] MEDS ORDERED: MORPHINE SULFATE 4 MG/ML SYRINGE IV STA (08:55)
[2018-10-01] MEDS ORDERED: SODIUM CHLORIDE 0.9% 1,000 ML IV STA (08:55)
--- NOTE | 2018-10-01 09:00 | ED ---
Abdominal Pain HPI - General Chief Complaint: Abdominal Pain Stated Complaint: abd pain Time Seen by Provider: 10/01/18 08:47 Source: patient, RN notes reviewed, old records reviewed Mode of arrival: ambulatory Limitations: no limitations - History of Present Illness Initial Comments: Patient is a 42-year-old male presents emergency department today with complaints of diffuse abdominal pain, bloating sensation. He reports that multiple episodes of vomiting. He states that he's tried to have a bowel movement Was unsuccessful. Patient states that he feels better after he vomits. Patient states that he has more pain over the right lower quadrant. Patient denies any associated chills or fever. Denies any history of sick contacts. There've also been sick after eating the same food that he did yesterday. Patient reports symptoms started yesterday evening. - Related Data Home Medications Medication Instructions Recorded Confirmed Sertraline [Zoloft] 100 mg PO DAILY 04/14/15 10/01/18 Allergies Allergy/AdvReac Type Severity Reaction Status Date / Time Penicillins Allergy Unknown Verified 10/01/18 08:46 Childhood Review of Systems ROS Statement: Those systems with pertinent positive or pertinent negative responses have been documented in the HPI. ROS Other: All systems not noted in ROS Statement are negative. Past Medical History Past Medical History: No Reported History, Sleep Apnea/CPAP/BIPAP Additional Past Medical History / Comment(s): SINUS PROBLEMS, obstructive sleep apnea History of Any Multi-Drug Resistant Organisms: None Reported Past Surgical History: Orthopedic Surgery Additional Past Surgical History / Comment(s): wisdom teeth removed. BILAT carpel tunnel. Sinus surgery Past Anesthesia/Blood Transfusion Reactions: No Reported Reaction Past Psychological History: Anxiety Smoking Status: Never smoker Past Alcohol Use History: None Reported Past Drug Use History: None Reported - Past Family History Father Family Medical History: Cancer Additional Family Medical History / Comment(s): prostate Ca-surgery Mother Family Medical History: No Reported History General Exam - General Exam Comments Initial Comments: 42-year-old male. Alert and oriented 3. No distress. Limitations: no limitations General appearance: alert, in no apparent distress Head exam: Present: atraumatic, normocephalic, normal inspection Eye exam: Present: normal appearance, PERRL, EOMI. Absent: scleral icterus, conjunctival injection, periorbital swelling ENT exam: Present: normal exam, mucous membranes moist Neck exam: Present: normal inspection. Absent: tenderness, meningismus, lymphadenopathy Respiratory exam: Present: normal lung sounds bilaterally. Absent: respiratory distress, wheezes, rales, rhonchi, stridor Cardiovascular Exam: Present: regular rate, normal rhythm, normal heart sounds. Absent: systolic murmur, diastolic murmur, rubs, gallop, clicks GI/Abdominal exam: Present: soft, tenderness ( Right lower quadrant tenderness), normal bowel sounds. Absent: distended, guarding, rebound, rigid Extremities exam: Present: normal inspection, full ROM, normal capillary refill. Absent: tenderness, pedal edema, joint swelling, calf tenderness Back exam: Present: normal inspection Neurological exam: Present: alert, oriented X3, CN II-XII intact Psychiatric exam: Present: normal affect, normal mood Course Vital Signs 10/01/18 08:37 Temperature 97.7 F Pulse Rate 69 Respiratory 18 Rate Blood Pressure 144/76 O2 Sat by Pulse 97 Oximetry Medical Decision Making - Medical Decision Making 42-year-old male present emergency with nausea, vomiting, and abdominal fullness. He states that he felt better after he would vomit. Patient was given IV fluids and lab work was obtained. Patient does have some significant right lower quadrant tenderness. No fever at this time. Patient's laboratory was reviewed. White blood count elevated at 15,000 with left shift of 14,000. Kidney alert [place] test were normal. Patient CT abdomen and pelvis was completed. This was concerning for possible appendicitis with a large appendix noted symptoms surrounding inflammatory changes. Patient's case discussed with Dr. Durant. An issue Patient Rocephin and Flagyl due to penicillin ALLERGY. Patient's case discussed with Dr. Wilkinson who accepts admission. - Lab Data Result diagrams: 10/01/18 09:38 10/01/18 09:38 Lab Results 10/01/18 10/01/18 10/01/18 Range/Units 09:38 09:38 09:38 WBC 15.4 H (3.8-10.6) k/uL RBC 5.40 (4.30-5.90) m/uL Hgb 15.3 (13.0-17.5) gm/dL Hct 44.7 (39.0-53.0) % MCV 82.8 (80.0-100.0) fL MCH 28.3 (25.0-35.0) pg MCHC 34.2 (31.0-37.0) g/dL RDW 13.0 (11.5-15.5) % Plt Count 216 (150-450) k/uL Neutrophils % 91 % Lymphocytes % 5 % Monocytes % 3 % Eosinophils % 0 % Basophils % 0 % Neutrophils # 14.0 H (1.3-7.7) k/uL Lymphocytes # 0.8 L (1.0-4.8) k/uL Monocytes # 0.5 (0-1.0) k/uL Eosinophils # 0.1 (0-0.7) k/uL Basophils # 0.0 (0-0.2) k/uL PT 9.6 (9.0-12.0) sec INR 0.9 (<1.2) APTT 22.0 (22.0-30.0) sec Sodium 140 (137-145) mmol/L Potassium 4.1 (3.5-5.1) mmol/L Chloride 102 (98-107) mmol/L Carbon Dioxide 26 (22-30) mmol/L Anion Gap 12 mmol/L BUN 12 (9-20) mg/dL Creatinine 0.71 (0.66-1.25) mg/dL Est GFR (CKD-EPI)AfAm >90 (>60 ml/min/1.73 sqM) Est GFR (CKD-EPI)NonAf >90 (>60 ml/min/1.73 sqM) Glucose 133 H (74-99) mg/dL Calcium 9.5 (8.4-10.2) mg/dL Total Bilirubin 0.5 (0.2-1.3) mg/dL AST 34 (17-59) U/L ALT 63 (21-72) U/L Alkaline Phosphatase 67 (38-126) U/L Total Protein 7.4 (6.3-8.2) g/dL Albumin 4.8 (3.5-5.0) g/dL Amylase 92 (30-110) U/L Lipase 137 (23-300) U/L Urine Color Urine Appearance (Clear) Urine pH (5.0-8.0) Ur Specific [place] (1.001-1.035) Urine Protein (Negative) Urine Glucose (UA) (Negative) Urine Ketones (Negative) Urine Blood (Negative) Urine Nitrite (Negative) Urine Bilirubin (Negative) Urine Urobilinogen (<2.0) mg/dL Ur Leukocyte Esterase (Negative) 10/01/18 Range/Units 09:38 WBC (3.8-10.6) k/uL RBC (4.30-5.90) m/uL Hgb (13.0-17.5) gm/dL Hct (39.0-53.0) % MCV (80.0-100.0) fL MCH (25.0-35.0) pg MCHC (31.0-37.0) g/dL RDW (11.5-15.5) % Plt Count (150-450) k/uL Neutrophils % % Lymphocytes % % Monocytes % % Eosinophils % % Basophils % % Neutrophils # (1.3-7.7) k/uL Lymphocytes # (1.0-4.8) k/uL Monocytes # (0-1.0) k/uL Eosinophils # (0-0.7) k/uL Basophils # (0-0.2) k/uL PT (9.0-12.0) sec INR (<1.2) APTT (22.0-30.0) sec Sodium (137-145) mmol/L Potassium (3.5-5.1) mmol/L Chloride (98-107) mmol/L Carbon Dioxide (22-30) mmol/L Anion Gap mmol/L BUN (9-20) mg/dL Creatinine (0.66-1.25) mg/dL Est GFR (CKD-EPI)AfAm (>60 ml/min/1.73 sqM) Est GFR (CKD-EPI)NonAf (>60 ml/min/1.73 sqM) Glucose (74-99) mg/dL Calcium (8.4-10.2) mg/dL Total Bilirubin (0.2-1.3) mg/dL AST (17-59) U/L ALT (21-72) U/L Alkaline Phosphatase (38-126) U/L Total Protein (6.3-8.2) g/dL Albumin (3.5-5.0) g/dL Amylase (30-110) U/L Lipase (23-300) U/L Urine Color Yellow Urine Appearance Clear (Clear) Urine pH 6.0 (5.0-8.0) Ur Specific [place] 1.029 (1.001-1.035) Urine Protein Trace H (Negative) Urine Glucose (UA) Negative (Negative) Urine Ketones Negative (Negative) Urine Blood Negative (Negative) Urine Nitrite Negative (Negative) Urine Bilirubin Negative (Negative) Urine Urobilinogen <2.0 (<2.0) mg/dL Ur Leukocyte Esterase Negative (Negative) - Radiology Data Radiology results: report reviewed CT abdomen and pelvis was showing correlate for possible appendicitis. Findings somewhat equivocal as there is inflammatory changes or mild also the appendix is appear to be abnormally enlarged. Penicillin medically and hepatic steatosis is noted. Disposition Clinical Impression: Appendicitis Disposition: ADMITTED IP TO THIS HOSP Condition: Stable Is patient prescribed a controlled substance at d/c from ED?: No Referrals: Carmencita England MD [Primary Care Provider] - 1-2 days Time of Disposition: 11:59
[2018-10-01 10:09] LABS: Appearance,Urine Clear (Clear); Bilirubin,Urine Negative (Negative); Blood,Urine Negative (Negative); Color,Urine Yellow; Glucose,Urine (UA) Negative (Negative); Ketones,Urine Negative (Negative); Leukocyte Esterase,Urine Negative (Negative); Nitrite,Urine Negative (Negative); Protein,Urine Trace (Negative); Specific Gravity,Urine 1.029 (1.001-1.035); Urobilinogen,Urine <2.0 mg/dL (<2.0)
[2018-10-01 10:13] LABS: Basophils % (A) 0 %; Eosinophils # (A) 0.1 k/uL (0-0.7); Eosinophils % (A) 0 %; HCT 44.7 % (39.0-53.0); HGB 15.3 gm/dL (13.0-17.5); Lymphocytes # (A) 0.8 k/uL (1.0-4.8); Lymphocytes % (A) 5 %; MCH 28.3 pg (25.0-35.0); MCHC 34.2 g/dL (31.0-37.0); MCV 82.8 fL (80.0-100.0); Mean Platelet Volume 6.6; Monocytes # (A) 0.5 k/uL (0-1.0); Monocytes % (A) 3 %; Neutrophils % (A) 91 %; Platelet Count 216 k/uL (150-450); WBC 15.4 k/uL (3.8-10.6)
[2018-10-01 10:17] LABS: INR 0.9 (<1.2); Prothrombin Time 9.6 sec (9.0-12.0)
[2018-10-01 10:22] LABS: ALT 63 U/L (21-72); AST 34 U/L (17-59); African American GFR (CKD) >90 (>60 ml/min/1.73 sqM); Albumin 4.8 g/dL (3.5-5.0); Alkaline Phosphatase 67 U/L (38-126); Amylase 92 U/L (30-110); Anion Gap 12 mmol/L; Blood Urea Nitrogen 12 mg/dL (9-20); Calcium 9.5 mg/dL (8.4-10.2); Carbon Dioxide 26 mmol/L (22-30); Chloride 102 mmol/L (98-107); Glucose 133 mg/dL (74-99); Lipase 137 U/L (23-300); Potassium 4.1 mmol/L (3.5-5.1); Sodium 140 mmol/L (137-145); Total Bilirubin 0.5 mg/dL (0.2-1.3); Total Protein 7.4 g/dL (6.3-8.2)
--- NOTE | 2018-10-01 11:16 | CT ---
EXAMINATION TYPE: CT abdomen pelvis w con DATE OF EXAM: 10/01/2018 COMPARISON: HISTORY: Abdominal pain CT DLP: 1161.6 mGycm Automated exposure control for dose reduction was used. TECHNIQUE: Helical acquisition of images from the lung bases through the pelvis have been completed. CONTRAST: Performed without Oral Contrast and with IV Contrast, patient injected with 100 mL of Isovue 300. FINDINGS: LUNG BASES: Minimal right-sided basilar atelectatic change and no pleural pericardial effusion. AORTA: No significant abnormality is appreciated. LIVER/GB: Liver shows low attenuation likely due to hepatic steatosis and the liver is enlarged. Cyst ic focus present within the left lobe measures 3 cm, smaller focus in the lateral segment of the left lobe measures 11 to 12 mm and is also hypodense similar to a right lobe lesion on axial image 14 jorge suring 13 mm, statistically these are also likely represent cysts, gallbladder is normal PANCREAS: No significant abnormality is seen. SPLEEN: Enlarged ADRENALS: No significant abnormality is seen. KIDNEYS: No significant abnormality is seen. REPRODUCTIVE ORGANS: There is some calcification associated with the prostate BOWEL: No significant abnormality is seen. The appendix shows some probable periappendiceal inflamma tory change, the appendix is thickened, there is some luminal air and high density material present h owever. FREE AIR: No Free Air visible. ASCITES: None visible. PELVIC ADENOPATHY: None visualized. RETROPERITONEAL ADENOPATHY: No Retroperitoneal Adenopathy visible. URINARY BLADDER: No significant abnormality is seen. OSSEOUS STRUCTURES: No significant abnormality is seen. IMPRESSION: CORRELATE FOR POSSIBLE APPENDICITIS. FINDING SOMEWHAT EQUIVOCAL INFLAMMATORY CHANGES ARE MILD, ALT MERON THE APPENDIX DOES APPEAR ABNORMALLY ENLARGED. HEPATOSPLENOMEGALY AND HEPATIC STEATOSIS, AND ADD ITIONAL FINDINGS ABOVE.
[2018-10-01] MEDS ORDERED: cefTRIAXone IN SWFI 1,000 MG/10 ML SYRINGE IVP STA (11:27)
[2018-10-01] MEDS ORDERED: metroNIDAZOLE-NS PMX 500 MG in SALINE 1 100ML.BAG IVPB STA (11:27)
[2018-10-01] MEDS ORDERED: KETOROLAC 30 MG/ML 1 ML VIAL IVP PRN (12:00)
[2018-10-01] MEDS ORDERED: ONDANSETRON 4 MG/2 ML VIAL IVP PRN (12:00)
[2018-10-01] MEDS ORDERED: NALOXONE 0.4 MG/ML 1 ML VIAL IV PRN ×2 (12:00→15:39)
[2018-10-01] MEDS ORDERED: MORPHINE SULFATE 4 MG/ML SYRINGE IV PRN (12:00)
[2018-10-01] MEDS ORDERED: IV FLUID CONTINUATION 1,000 ML IV ONE (13:02)
[2018-10-01 13:15] VITALS: RESP 16
[2018-10-01] MEDS ORDERED: ONDANSETRON 4 MG/2 ML VIAL IVP ONE (13:24)
[2018-10-01] MEDS ORDERED: DEXAMETHASONE SOD PHOSPHATE 10 MG/ML 1 ML VIAL IV ONE (13:25)
[2018-10-01] MEDS ORDERED: HEPARIN SODIUM,PORCINE 5,000 UNIT/ML 1 ML VIAL SQ ONE (13:38)
--- NOTE | 2018-10-01 13:58 | P.GSHP ---
History of Present Illness H&P Date: 10/01/18 Chief Complaint: Right lower quadrant pain This a 42-year-old male who's developed right lower quadrant pain. Patient's had pain for the last 24 hours. He presents to the emergency room. He is found have evidence of acute appendicitis. Past Medical History Past Medical History: No Reported History, Sleep Apnea/CPAP/BIPAP Additional Past Medical History / Comment(s): SINUS PROBLEMS, obstructive sleep apnea History of Any Multi-Drug Resistant Organisms: None Reported Past Surgical History: Orthopedic Surgery Additional Past Surgical History / Comment(s): wisdom teeth removed. BILAT carpel tunnel. Sinus surgery Past Anesthesia/Blood Transfusion Reactions: No Reported Reaction Past Psychological History: Anxiety Smoking Status: Never smoker Past Alcohol Use History: None Reported Past Drug Use History: None Reported - Past Family History Father Family Medical History: Cancer Additional Family Medical History / Comment(s): prostate Ca-surgery Mother Family Medical History: No Reported History Medications and Allergies Home Medications Medication Instructions Recorded Confirmed Type Sertraline [Zoloft] 100 mg PO DAILY 04/14/15 10/01/18 History Allergies Allergy/AdvReac Type Severity Reaction Status Date / Time Penicillins Allergy Unknown Verified 10/01/18 08:46 Childhood Surgical - Exam Vital Signs Temp Pulse Resp BP Pulse Ox 97.7 F 69 18 144/76 97 10/01/18 08:37 10/01/18 08:37 10/01/18 08:37 10/01/18 08:37 10/01/18 08:37 - General well developed, well nourished, no distress - Eyes PERRL - ENT normal pinna - Neck no masses - Respiratory normal expansion - Cardiovascular Rhythm: regular - Abdomen Right lower quadrant pain Abdomen: soft Results - Labs 10/01/18 09:38 10/01/18 09:38 Abnormal Lab Results - Last 24 Hours (Table) 10/01/18 10/01/18 10/01/18 Range/Units 09:38 09:38 09:38 WBC 15.4 H (3.8-10.6) k/uL Neutrophils # 14.0 H (1.3-7.7) k/uL Lymphocytes # 0.8 L (1.0-4.8) k/uL Glucose 133 H (74-99) mg/dL Urine Protein Trace H (Negative) Diabetes panel 10/01/18 Range/Units 09:38 Sodium 140 (137-145) mmol/L Potassium 4.1 (3.5-5.1) mmol/L Chloride 102 (98-107) mmol/L Carbon Dioxide 26 (22-30) mmol/L BUN 12 (9-20) mg/dL Creatinine 0.71 (0.66-1.25) mg/dL Glucose 133 H (74-99) mg/dL Calcium 9.5 (8.4-10.2) mg/dL AST 34 (17-59) U/L ALT 63 (21-72) U/L Alkaline Phosphatase 67 (38-126) U/L Total Protein 7.4 (6.3-8.2) g/dL Albumin 4.8 (3.5-5.0) g/dL Calcium panel 10/01/18 Range/Units 09:38 Calcium 9.5 (8.4-10.2) mg/dL Albumin 4.8 (3.5-5.0) g/dL Pituitary panel 10/01/18 Range/Units 09:38 Sodium 140 (137-145) mmol/L Potassium 4.1 (3.5-5.1) mmol/L Chloride 102 (98-107) mmol/L Carbon Dioxide 26 (22-30) mmol/L BUN 12 (9-20) mg/dL Creatinine 0.71 (0.66-1.25) mg/dL Glucose 133 H (74-99) mg/dL Calcium 9.5 (8.4-10.2) mg/dL Adrenal panel 10/01/18 Range/Units 09:38 Sodium 140 (137-145) mmol/L Potassium 4.1 (3.5-5.1) mmol/L Chloride 102 (98-107) mmol/L Carbon Dioxide 26 (22-30) mmol/L BUN 12 (9-20) mg/dL Creatinine 0.71 (0.66-1.25) mg/dL Glucose 133 H (74-99) mg/dL Calcium 9.5 (8.4-10.2) mg/dL Total Bilirubin 0.5 (0.2-1.3) mg/dL AST 34 (17-59) U/L ALT 63 (21-72) U/L Alkaline Phosphatase 67 (38-126) U/L Total Protein 7.4 (6.3-8.2) g/dL Albumin 4.8 (3.5-5.0) g/dL Assessment and Plan Assessment: Acute appendicitis. We'll perform laparoscopic appendectomy
[2018-10-01] MEDS ORDERED: LIDOCAINE 1% INJ 10MG/ML (20 ML MDV) ONE (14:14)
[2018-10-01] MEDS ORDERED: KETOROLAC 30 MG/ML 1 ML VIAL ONE (14:14)
[2018-10-01] MEDS ORDERED: MIDAZOLAM 2 MG/2 ML VIAL ONE (14:14)
[2018-10-01] MEDS ORDERED: PROPOFOL 10 MG/ML 20 ML VIAL IV ONE (14:14)
[2018-10-01] MEDS ORDERED: HYDROmorphone (PF) 1 MG/ML ONE (14:14)
[2018-10-01] MEDS ORDERED: ROCURONIUM BROMIDE 10 MG/ML 10 ML VIAL IV ONE (14:14)
[2018-10-01] MEDS ORDERED: fentaNYL (PF) 50 MCG/ML 2 ML AMP ONE (14:14)
[2018-10-01] MEDS ORDERED: BUPIVACAIN-EPI 0.5%-1:200,000 30 ML VIAL SQ ONE (14:19)
[2018-10-01] MEDS ORDERED: LACTATED RINGERS 1,000 ML IV ONE ×2 (15:05→15:39)
[2018-10-01] MEDS ORDERED: METOCLOPRAMIDE 5 MG/ML 2 ML VIAL IVP PRN (15:39)
[2018-10-01] MEDS ORDERED: HYDROcodone/APAP 5-325MG 1 EACH TAB PO PRN (15:39)
[2018-10-01] MEDS ORDERED: HYDROmorphone 0.5 MG/0.5 ML SYRINGE IVP PRN (15:39)
--- NOTE | 2018-10-01 15:39 | P.OP ---
Date of Procedure: 10/01/18 Preoperative Diagnosis: Acute appendicitis Postoperative Diagnosis: Acute appendicitis Procedure(s) Performed: Laparoscopic appendectomy Anesthesia: PRATEEK Surgeon: Huber Wilkinson Estimated Blood Loss (ml): 5 Pathology: other (Appendix) Condition: stable Disposition: PACU Description of Procedure: HThe patient's placed on the operating table in the supine position. The patient received general anesthesia. The abdomen was prepped and draped in the usual sterile fashion. The skin was anesthetized 1% local Xylocaine at the trocar sites. Using an 11 blade the skin was incised at the umbilicus. The umbilicus was grasped with a Andrew clamp and then a Veress needle was placed into the peritoneal cavity. Position of the Veress needle was confirmed with positive drop test. After adequate insufflation a 5 mm trocar was placed into the peritoneal cavity. The abdomen was further insufflated. And then the laparoscope was placed in the peritoneal cavity. Next a 5 mm trocar was placed in the midline suprapubic position. And then a 10 mm trocar was placed in the midline epigastric position. The patient was rotated with the right side up and in Trendelenburg. The appendix was visualized. The appendix appeared to be inflamed. The appendix was grasped and then using the Harmonic scissors the mesoappendix was divided. A PDS Endoloop was then placed around the base of the appendix. And then the appendix was divided using Harmonic scissors. The appendix was placed into an Endo Catch and brought out through the 10 mm trocar site. The abdomen was irrigated. There is no bleeding seen. The trochars withdrawn. The skin was closed interrupted 3-0 Monocryl suture. Dermabond dressing was applied. Patient was sent to recovery room in stable condition.
[2018-10-01] MEDS ORDERED: LEVOFLOXACIN 500MG-D5W PMX 500 MG in DEXTROSE/WATER 1 100ML.BAG IVPB SCH (16:00)
[2018-10-01 17:05] VITALS: BMI 32.5
[2018-10-01] MEDS: SODIUM CHLORIDE 0.9% 1,000 ML IV SCH ×2 (17:23→23:08)
--- NOTE | 2018-10-01 18:39 | P.CONS ---
History of Present Illness - Reason for Consult Consult date: 10/01/18 medical management Requesting physician: Huber Wilkinson - Chief Complaint Abdominal pain - History of Present Illness 42-year-old male with PMH of OCD presents to the ED for abdominal pain.CT abdomen and pelvis shows possible appendicitis. Gen. surgery was consulted and recommended that the patient undergo surgery. Patient underwent surgery on 10/01/2018. We have been consulted for medical management of the patient. Patient was seen and examined after surgery. No acute events overnight. Patient reports significant improvement in his abdominal pain. Reports pain to be 1 out of 10 in severity. He denies any nausea or vomiting. No fever or chills. He denies any chest pain, shortness of breath or palpitations. Review of Systems Pertinent positives and negatives as discussed in HPI, a complete review of systems was performed and all other systems are negative. Past Medical History Past Medical History: Sleep Apnea/CPAP/BIPAP Additional Past Medical History / Comment(s): SINUS PROBLEMS, obstructive sleep apnea- does not use machine anymore- not needed per after sinus surgery. History of Any Multi-Drug Resistant Organisms: None Reported Past Surgical History: Orthopedic Surgery Additional Past Surgical History / Comment(s): wisdom teeth removed. BILAT carpel tunnel. Sinus surgery. laprascopic appendectomy 10/01/18. Past Anesthesia/Blood Transfusion Reactions: No Reported Reaction Past Psychological History: Anxiety Smoking Status: Never smoker Past Alcohol Use History: None Reported Past Drug Use History: None Reported - Past Family History Father Family Medical History: Cancer Additional Family Medical History / Comment(s): prostate Ca-surgery Mother Family Medical History: No Reported History Medications and Allergies Home Medications Medication Instructions Recorded Confirmed Type Sertraline [Zoloft] 100 mg PO DAILY 04/14/15 10/01/18 History Allergies Allergy/AdvReac Type Severity Reaction Status Date / Time Penicillins Allergy Unknown Verified 10/01/18 08:46 Childhood Physical Exam Vitals: Vital Signs Temp Pulse Pulse Resp BP BP Pulse Ox 10/01/18 16:44 97.2 F L 68 16 110/61 92 L 10/01/18 16:00 73 16 113/57 94 L 10/01/18 15:45 77 16 113/59 97 10/01/18 15:30 65 16 112/55 100 10/01/18 15:18 97.8 F 69 16 122/67 100 10/01/18 13:09 98 F 67 16 131/75 97 10/01/18 13:00 98 F 67 16 126/74 97 10/01/18 12:08 97.7 F 67 18 126/74 98 10/01/18 08:37 97.7 F 69 18 144/76 97 Intake and Output 10/01/18 10/01/18 10/01/18 06:59 14:59 22:59 Intake Total 1999 700 Output Total 4 Balance 1995 700 Intake: IV 1000 700 Intake, IV Titration 1000 Amount Lactated Ringers 1,000 ml 1000 @ 125 mls/hr IV .Q8H ONE Rx#:[id number] Output: Estimated Blood Loss 4 Other: Weight 99.79 kg General: [non toxic], [no distress], [appears at stated age] Derm: [warm], [dry] Head: [atraumatic], [normocephalic], [symmetric] Eyes: [EOMI], [no lid lag], [anicteric sclera] Mouth: [no lip lesion], [mucus membranes moist] Cardiovascular: [S1S2 reg], [no murmur], [positive posterior tibial pulse bilateral], Lungs: [CTA bilateral], [no rhonchi, no rales] , [no accessory muscle use] Abdominal: [soft], [ nontender to palpation], [laparoscopic scars], [no appre ciable organomegaly] Ext: [no gross muscle atrophy], [no edema], [no contractures] Neuro: [ CN II-XI grossly intact], [no focal neuro deficits] Psych: [Alert], [oriented], [appropriate affect] Results CBC & Chem 7: 10/01/18 09:38 10/01/18 09:38 Labs: Abnormal Lab Results - Last 24 Hours (Table) 10/01/18 10/01/18 10/01/18 Range/Units 09:38 09:38 09:38 WBC 15.4 H (3.8-10.6) k/uL Neutrophils # 14.0 H (1.3-7.7) k/uL Lymphocytes # 0.8 L (1.0-4.8) k/uL Glucose 133 H (74-99) mg/dL Urine Protein Trace H (Negative) Assessment and Plan Assessment: Assessment and Plan OCD/anxiety Acute appendicitis Plans: Continue Zoloft. As seen on CTAP. Patient improved after appendectomy. Likely cause of leukocytosis. Plans: Management as per general surgery. Continue levofloxacin.pain management with [place], Dilaudid as needed. Reglan or Zofran as needed for nausea or vomiting.continue Protonix IV daily. Thank you for this consult. Please call with any additional questions or concerns.
[2018-10-02 05:27] VITALS: BP 137/68; PULSE 76; TEMP 97.9
[2018-10-02] MEDS: SODIUM CHLORIDE 0.9% 1,000 ML IV SCH (08:08)
--- NOTE | 2018-10-02 08:56 | P.PN ---
Subjective Progress Note Date: 10/02/18 Principal diagnosis: appendicitis Patient was seen and examined. No acute events overnight. Patient reports mild abdominal pain at the site of incision. States that the pain gets worse with coughing and straining. Tolerating diet well. Denies any nausea or vomiting. Urinating okay now. No bowel movement yet but passing gas now. Denies any chest pain, shortness of breath or palpitations. Objective - Vital Signs Vital signs: Vital Signs Temp 97.9 F 10/02/18 05:20 Pulse 76 10/02/18 05:20 Resp 16 10/02/18 08:00 BP 137/68 10/02/18 05:20 Pulse Ox 97 10/02/18 05:20 Intake & Output 10/01/18 10/02/18 10/02/18 18:59 06:59 18:59 Intake Total 2700 Output Total 4 Balance 2696 Weight 99.79 kg Intake: IV 1700 Intake, IV Titration 1000 Amount Lactated Ringers 1,000 ml 1000 @ 125 mls/hr IV .Q8H ONE Rx#:[id number] Output: Estimated Blood Loss 4 Other: # Voids 2 - Exam General: [non toxic], [no distress], [appears at stated age] Derm: [warm], [dry] Head: [atraumatic], [normocephalic], [symmetric] Eyes: [EOMI], [no lid lag], [anicteric sclera] Mouth: [no lip lesion], [mucus membranes moist] Cardiovascular: [S1S2 reg], [no murmur], [positive posterior tibial pulse bilateral], Lungs: [CTA bilateral], [no rhonchi, no rales] , [no accessory muscle use] Abdominal: [soft], [ nontender to palpation], [laparoscopic scars], [no appreciable organomegaly] Ext: [no gross muscle atrophy], [no edema], [no contractures] Neuro: [no focal neuro deficits] Psych: [Alert], [oriented], [appropriate affect] - Labs CBC & Chem 7: 10/01/18 09:38 10/01/18 09:38 Labs: Abnormal Lab Results - Last 24 Hours (Table) 10/01/18 10/01/18 10/01/18 Range/Units 09:38 09:38 09:38 WBC 15.4 H (3.8-10.6) k/uL Neutrophils # 14.0 H (1.3-7.7) k/uL Lymphocytes # 0.8 L (1.0-4.8) k/uL Glucose 133 H (74-99) mg/dL Urine Protein Trace H (Negative) Assessment and Plan Assessment: Assessment and Plan OCD/anxiety Acute appendicitis Plans: Continue Zoloft. As seen on CTAP. Patient improved after appendectomy. Likely cause of leukocytosis. Plans: Management as per general surgery. Continue levofloxacin. Pain management with [place], Dilaudid as needed. Reglan or Zofran as needed for nausea or vomiting. Continue Protonix IV daily. Thank you for this consult. Please call with any additional questions or concerns. Discharge planning as per general surgery recommendations.
[2018-10-02] MEDS ORDERED: ENOXAPARIN 40 MG/0.4 ML SYRINGE SQ SCH (09:00)
[2018-10-02] MEDS ORDERED: PANTOPRAZOLE 40 MG/10 ML VIAL IV SCH (09:00)
== END 2018-10-02 10:43 | disposition home or self-care (01) ==
LOC: EC 08:28 → 4MS4W 11:59
PROVIDERS: ADMIT Surgery; ATTEND Surgery
DX: K35.80 Unspecified acute appendicitis (principal); G47.33 Obstructive sleep apnea (adult) (pediatric); Z99.89 Dependence on other enabling machines and devices; K76.0 Fatty (change of) liver, not elsewhere classified; F42.9 Obsessive-compulsive disorder, unspecified; F41.9 Anxiety disorder, unspecified; Z79.899 Other long term (current) drug therapy; Z88.0 Allergy status to penicillin; Z80.42 Family history of malignant neoplasm of prostate
CPT/HCPCS: 44970; 96372; 96361; 96374; 96375; 99285; 36415; 88304; 80053; 82150; 83690; 85025; 85610; 85730; 81003; 87040; 74177; G0378 ×2; J2250; J2270; J1644; J1100; J2405; J1956; J2001; J1650; J0696; J3010; J1885; J1170; J2704; C9113 ×2; Q9967

== ENCOUNTER 2018-12-05 16:46 | Emergency (ER) | payer MEDICAID ==
[2018-12-05 17:17] VITALS: BP 145/80; PULSE 88; RESP 18; TEMP 98.5
[2018-12-05] MEDS ORDERED: LIDOCAINE 1% INJ 10MG/ML (20 ML MDV) SQ ONE (17:50)
[2018-12-05] MEDS ORDERED: CEPHALEXIN 500MG STARTER PACK 4 CAP BTL PO STA (18:11)
--- NOTE | 2018-12-05 18:16 | ED ---
Wound/Laceration HPI - General Chief Complaint: Wound/Laceration Stated Complaint: LEFT ARM INJURY Time Seen by Provider: 12/05/18 17:45 Source: patient, RN notes reviewed Mode of arrival: ambulatory Limitations: no limitations - History of Present Illness Initial Comments: 43-year-old male presented to emergency from for left arm laceration. He was using a chainsaw and states that it abrasions to his left arm. Patient's tetanus is up-to-date. Patient has full range of motion neurovascular intact. - Related Data Home Medications Medication Instructions Recorded Confirmed Sertraline [Zoloft] 100 mg PO DAILY 04/14/15 10/01/18 Previous Rx's Medication Instructions Recorded Docusate [Colace] 100 mg PO BID #20 capsule 10/02/18 HYDROcodone/APAP 5-325MG [[place] 1 tab PO Q6HR PRN #10 tab 10/02/18 5-325] Levofloxacin [Levaquin] 500 mg PO DAILY 3 Days #3 tab 10/02/18 Cephalexin [Keflex] 500 mg PO Q6HR #28 cap 12/05/18 Allergies Allergy/AdvReac Type Severity Reaction Status Date / Time Penicillins Allergy Unknown Verified 10/01/18 08:46 Childhood Review of Systems ROS Statement: Those systems with pertinent positive or pertinent negative responses have been documented in the HPI. ROS Other: All systems not noted in ROS Statement are negative. Past Medical History Past Medical History: Sleep Apnea/CPAP/BIPAP Additional Past Medical History / Comment(s): SINUS PROBLEMS, obstructive sleep apnea- does not use machine anymore- not needed per after sinus surgery. History of Any Multi-Drug Resistant Organisms: None Reported Past Surgical History: Orthopedic Surgery Additional Past Surgical History / Comment(s): wisdom teeth removed. BILAT carpel tunnel. Sinus surgery. laprascopic appendectomy 10/01/18. Past Anesthesia/Blood Transfusion Reactions: No Reported Reaction Past Psychological History: Anxiety Smoking Status: Never smoker Past Alcohol Use History: None Reported Past Drug Use History: None Reported - Past Family History Father Family Medical History: Cancer Additional Family Medical History / Comment(s): prostate Ca-surgery Mother Family Medical History: No Reported History General Exam Limitations: no limitations General appearance: alert, in no apparent distress Head exam: Present: atraumatic, normocephalic, normal inspection Respiratory exam: Present: normal lung sounds bilaterally. Absent: respiratory distress, wheezes, rales, rhonchi, stridor Cardiovascular Exam: Present: regular rate, normal rhythm, normal heart sounds. Absent: systolic murmur, diastolic murmur, rubs, gallop, clicks Extremities exam: Present: other (Left forearm there is an irregular 4 cm laceration patient's full strength full range of motion neurovascular intact) Course Vital Signs 12/05/18 17:14 Temperature 98.5 F Pulse Rate 88 Respiratory 18 Rate Blood Pressure 145/80 O2 Sat by Pulse 97 Oximetry Procedures - Laceration Laceration #1 Consent Obtained: verbal consent Indication: laceration Site: upper extremity (Left arm) Size (cm): 4 Description: irregular Depth: simple, single layer Anesthetic Used: lidocaine 1%, without epi Anesthesia Technique: local infiltration Amount (mls): 8 Pre-repair: wound explored, irrigated extensively, deep structures intact, foreign body removed, wound margins revised Type of Sutures: nylon Size of Sutures: 3-0 Number of Sutures: 7 Technique: simple, interrupted Patient Tolerated Procedure: well, no complications Medical Decision Making - Medical Decision Making 43-year-old male present emergency department for a laceration this was closed using sutures patient tolerated well tetanus is updated patient be discharged with antibiotics. Disposition Clinical Impression: Laceration of left upper extremity Disposition: HOME SELF-CARE Condition: Stable Instructions (If sedation given, give patient instructions): Care For Your Stitches (ED), Laceration (ED) Additional Instructions: Please return to the Emergency Department if symptoms worsen or any other concerns. Have sutures removed in 10-14 days Prescriptions: Cephalexin [Keflex] 500 mg PO Q6HR #28 cap Is patient prescribed a controlled substance at d/c from ED?: No Referrals: Carmencita England MD [Primary Care Provider] - 1-2 days Time of Disposition: 18:16
== END 2018-12-05 18:27 | disposition home or self-care (01) ==
LOC: EC 16:46
DX: S41.122A Laceration with foreign body of left upper arm, initial encounter (principal); F41.9 Anxiety disorder, unspecified; G47.33 Obstructive sleep apnea (adult) (pediatric); Z99.89 Dependence on other enabling machines and devices; Z79.899 Other long term (current) drug therapy; Z88.0 Allergy status to penicillin; W29.3XXA Contact with powered garden and outdoor hand tools and machinery, initial encounter; Y92.89 Other specified places as the place of occurrence of the external cause; Y93.H2 Activity, gardening and landscaping
CPT/HCPCS: 99282; 12032; J2001

== ENCOUNTER 2022-02-11 08:06 | Day surgery (SDC) | payer MEDICAID ==
[~2022-02-11 08:06] MED LIST changes: -DEXAMETHASONE SOD PHOS (MDV) 100 MG/10 ML VIAL ONE; -DEXAMETHASONE SOD PHOSPHATE 10 MG/ML 1 ML VIAL IV ONE; -DEXAMETHASONE SOD PHOSPHATE 4 MG/ML 1 ML VIAL IV ONE; -FAMOTIDINE 20 MG/2 ML VIAL IV ONE; -HYDROcodone/APAP 5-325MG 1 EACH TAB PO ONE; -HYDROmorphone 0.5 MG/0.5 ML SYRINGE IVP PRN; +LIDOCAINE 1% (10MG/ML) FOR IV START INTRADERMA PRN; -LIDOCAINE 1% 20 ML VIAL (10MG/ML) FOR IV START INTRADERMA PRN; -LIDOCAINE 1% INJ 10MG/ML (20 ML MDV) ONE; -LIDOCAINE 1%-EPI 1:100,000 20 ML VIAL SQ ONE; -MELOXICAM 7.5 MG TAB PO ONE; -MIDAZOLAM 2 MG/2 ML VIAL IV PRN; -MIDAZOLAM 2 MG/2 ML VIAL ONE; -MORPHINE SULFATE 2 MG/ML SYRINGE IV PRN; -ONDANSETRON 4 MG/2 ML VIAL IVP ONE; -OXYMETAZOLINE 0.05% NASL SPRAY 1 SPRAY BOTTLE NASAL ONE; -PROPOFOL 10 MG/ML 20 ML VIAL IV ONE; -Pre Op ABX Message 1 EACH MISC MISCELLANE ONE; -SCOPOLAMINE 1.5MG/72HR PATCH TRANSDERM ONE; -SUCCINYLCHOLINE CHLORIDE 100 MG/5 ML SYR IV ONE; -fentaNYL (PF) 50 MCG/ML 2 ML AMP IV PRN; -fentaNYL (PF) 50 MCG/ML 2 ML AMP ONE; -hydrALAZINE HCL 20 MG/ML 1 ML VIAL IV ONE
[2022-02-11 08:27] VITALS: RESP 16; TEMP 97
[2022-02-11] MEDS: LACTATED RINGERS 1,000 ML IV SCH ×2 (08:37→09:23)
--- NOTE | 2022-02-11 09:42 | P.PCN ---
Date of Procedure: 02/11/22 Procedure(s) Performed: BRIEF HISTORY: Patient is a 46-year-old pleasant male scheduled for an elective colonoscopy as a part of value should prior history of colon polyps. Last colonoscopy was 5 years ago. PROCEDURE PERFORMED: Colonoscopy with snare polypectomy. PREOPERATIVE DIAGNOSIS: History of colon polyps. IV sedation per Anesthesia. PROCEDURE: After informed consent was obtained, the patient, was brought into the endoscopy unit. IV sedation was administered by Anesthesia under continuous monitoring. Digital rectal examination was normal. Initially the Olympus CF-160 flexible video colonoscope was then inserted in the rectum, gradually advanced into the cecum without any difficulty. Careful examination was performed as the scope was gradually being withdrawn. Ileocecal valve and the appendiceal orifice were visualized and appeared normal. Prep was excellent. Mucosa of the cecum, a scending colon, transverse colon, was normal. In the descending colon there was a 5 mm polyp that was removed by snare polypectomy. descending colon, sigmoid colon, and rectum appeared normal. Retroflexion was performed in the rectum and no lesions were seen. The patient tolerated the procedure well. IMPRESSION: 5 mm descending colon polyp status post polypectomy Rest of the colon appeared normal RECOMMENDATIONS: Findings of this examination were discussed with the patient as well as a family. He was advised to follow with the biopsy results. If the biopsy results adenoma he can have a repeat colonoscopy in 5 years.
[2022-02-11 10:02] VITALS: BP 115/68; PULSE 66
== END 2022-02-11 10:50 | disposition home or self-care (01) ==
LOC: ORWHC2ENDO 08:06
PROVIDERS: ATTEND Internal Medicine Gastroenterology
DX: Z12.11 Encounter for screening for malignant neoplasm of colon (principal); D12.4 Benign neoplasm of descending colon; G47.33 Obstructive sleep apnea (adult) (pediatric); Z99.89 Dependence on other enabling machines and devices; Z88.0 Allergy status to penicillin; Z86.010 Personal history of colon polyps; Z79.899 Other long term (current) drug therapy
CPT/HCPCS: 45385; 88305